=== PATIENT | male | born 1950 | race Caucasian/White ===

== ENCOUNTER → 2016-12-07 | Outpatient (REF) | payer MEDICARE ==
[~2016-12-07] MED LIST: /PANT40TA PO; /WARF4TA PO; ALEV220T26 PO; ASPI325T PO; CO Q60CA PO; IBUP200T2 PO; KRIL1000 PO; MULTTAB4 PO; SAW500CA7 PO; TYLE325T5 PO; VITACAP8 PO; [UNRECOGNIZED DRUG - CODE] PO
[2016-12-07 12:11] LABS: ALBUMIN 3.7 GM/DL (3.2-5.2); ALBUMIN/GLOBULIN RATIO 1.28 (1.00-1.93); ALKALINE PHOSPHATASE 75 U/L (45-117); ALT/SGPT 24 U/L (12-78); ANION GAP 8 MEQ/L (8-16); AST/SGOT 18 U/L (15-37); BILIRUBIN,TOTAL 0.7 MG/DL (0.2-1.0); BLOOD UREA NITROGEN 16 MG/DL (7-18); CALCIUM LEVEL 8.5 MG/DL (8.8-10.2); CARBON DIOXIDE LEVEL 30 MEQ/L (21-32); CHLORIDE LEVEL 106 MEQ/L (98-107); CHOLESTEROL LEVEL 279 MG/DL (<200); CREATININE FOR GFR 1.11 MG/DL (0.70-1.30); GLOMERULAR FILTRATION RATE > 60.0 (>49); GLUCOSE, FASTING 96 MG/DL (80-110); POTASSIUM SERUM 4.2 MEQ/L (3.5-5.1); SODIUM LEVEL 144 MEQ/L (136-145); TOTAL PROTEIN 6.6 GM/DL (6.4-8.2); TRIGLYCERIDES LEVEL 227 MG/DL (<150)
== END ==
LOC: M SFHCCLAY 07:13
PROVIDERS: ATTEND Family Medicine
DX: E78.2 Mixed hyperlipidemia (principal); I10 Essential (primary) hypertension

== ENCOUNTER → 2016-12-29 | Outpatient (CLI) | payer MEDICARE ==
--- NOTE | 2016-12-29 13:16 | REP ---
LEFT LOWER EXTREMITY DOPPLER VENOUS ULTRASOUND WITH VENOUS REFLUX ULTRASOUND: 12/29/2016. Comparison: Bilateral lower extremity venous ultrasound 11/05/2012. Clinical history: Chronic venous hypertension, ulcer left lower extremity. Prior DVT in the distal femoral and popliteal vein on that left side, nonocclusive. Technique: Standard duplex techniques were utilized. Subsequently a venous reflux study performed the same extremity. LOWER EXTREMITY DOPPLER VENOUS ULTRASOUND: The deep venous system was studied using the standard techniques. There was nonocclusive DVT present in the distal SFV through the popliteal trifurcation. There was color flow seen throughout it. Some respiratory variation and augmented flow also demonstrated throughout the course of these vessels. The common femoral vein and proximal femoral vein in the thigh are without thrombus and are fully compressible with respiratory variation and augmented flow. Impression: 1. Nonocclusive DVT in the distal femoral vein and popliteal vein through to the popliteal trifurcation. Good flow with respiratory variation and augmented flow demonstrated. 2. Incidental note made of the duplication of the mid SFV as anatomic variation. Technologist notes indicate the patient is taking Xarelto at this time. LEFT LOWER EXTREMITY VENOUS REFLUX STUDY: CFV reflux yes. Anterior accessory GSV present, reflux no. GSV at femoral junction: Reflux no. GSV at saphenofemoral junction 3.5 mm AP. GSV at midthigh yes reflux. AP 6.1 mm. Reflux 9.5 seconds. GSV at knee yes reflux. AP 4.6 mm. Reflux 9.0 seconds. SFV proximal yes, reflux. SFV mid yes, reflux. SFV distal yes, reflux. Popliteal yes, reflux. Lesser saphenous vein yes, reflux when standing. AP dimension 3.5 mm reflux time 4.75 seconds. There were collaterals from the proximal thigh, midthigh, and distal thigh region of the GSV. At the knee there was a 3.6 mm collateral anterior accessory saphenous vein connects to the greater saphenous vein in the midthigh. There was reflux and residual thrombus in the distal SFV and popliteal vein. Signed by Enrique Clark MD 12/29/2016 08:11 P
== END ==
LOC: M RAD 08:51
PROVIDERS: ATTEND Surgery
DX: I87.312 Chronic venous hypertension (idiopathic) with ulcer of left lower extremity (principal)

== ENCOUNTER → 2017-04-10 | Outpatient (REF) | payer MEDICARE ==
[2017-04-10 13:03] LABS: ALBUMIN 3.7 GM/DL (3.2-5.2); ALBUMIN/GLOBULIN RATIO 1.28 (1.00-1.93); ALKALINE PHOSPHATASE 83 U/L (45-117); ALT/SGPT 28 U/L (12-78); ANION GAP 7 MEQ/L (8-16); AST/SGOT 24 U/L (15-37); BILIRUBIN,TOTAL 0.7 MG/DL (0.2-1.0); BLOOD UREA NITROGEN 24 MG/DL (7-18); CALCIUM LEVEL 8.7 MG/DL (8.8-10.2); CARBON DIOXIDE LEVEL 28 MEQ/L (21-32); CHLORIDE LEVEL 106 MEQ/L (98-107); CHOLESTEROL LEVEL 256 MG/DL (<200); CREATININE FOR GFR 1.07 MG/DL (0.70-1.30); GLOMERULAR FILTRATION RATE > 60.0 (>49); GLUCOSE, FASTING 86 MG/DL (80-110); POTASSIUM SERUM 4.5 MEQ/L (3.5-5.1); SODIUM LEVEL 141 MEQ/L (136-145); TOTAL PROTEIN 6.6 GM/DL (6.4-8.2); TRIGLYCERIDES LEVEL 192 MG/DL (<150)
== END ==
LOC: M SFHCCLAY 07:48
PROVIDERS: ATTEND Family Medicine
DX: E78.2 Mixed hyperlipidemia (principal); Z12.5 Encounter for screening for malignant neoplasm of prostate; I10 Essential (primary) hypertension
CPT/HCPCS: 80053; 80061; 84443; G0103

== ENCOUNTER → 2017-10-17 | Outpatient (REF) | payer MEDICARE ==
[2017-10-17 12:11] LABS: ALBUMIN/GLOBULIN RATIO 1.29 (1.00-1.93); ALKALINE PHOSPHATASE 77 U/L (45-117); ALT/SGPT 24 U/L (12-78); ANION GAP 6 MEQ/L (8-16); AST/SGOT 19 U/L (7-37); BILIRUBIN,TOTAL 0.6 MG/DL (0.2-1.0); BLOOD UREA NITROGEN 25 MG/DL (7-18); CALCIUM LEVEL 8.9 MG/DL (8.8-10.2); CARBON DIOXIDE LEVEL 29 MEQ/L (21-32); CHLORIDE LEVEL 105 MEQ/L (98-107); CHOLESTEROL LEVEL 302 MG/DL (<200); CHOLESTEROL RISK RATIO 7.743 (<5); CREATININE FOR GFR 1.26 MG/DL (0.70-1.30); GLOMERULAR FILTRATION RATE > 60.0 (>49); GLUCOSE, FASTING 92 MG/DL (80-110); HDL CHOLESTEROL 39 MG/DL (>40); LDL CHOLESTEROL 217.2 MG/DL (<100); NON-HDL-C 263 MG/DL; POTASSIUM SERUM 4.3 MEQ/L (3.5-5.1); SODIUM LEVEL 140 MEQ/L (136-145); TOTAL PROTEIN 7.1 GM/DL (6.4-8.2); TRIGLYCERIDES LEVEL 229 MG/DL (<150)
== END ==
LOC: M SFHCCLAY 07:27
DX: E78.2 Mixed hyperlipidemia (principal); I10 Essential (primary) hypertension
CPT/HCPCS: 84443

== ENCOUNTER → 2018-06-19 | Outpatient (CLI) | payer MEDICARE | LOC: M CLY 07:48 | DX: M25.561 Pain in right knee (principal); Z53.8 Procedure and treatment not carried out for other reasons ==

== ENCOUNTER → 2018-06-19 | Outpatient (CLI) | payer MEDICARE | LOC: M CLY 08:14 | DX: M17.11 Unilateral primary osteoarthritis, right knee (principal); M25.761 Osteophyte, right knee; M25.561 Pain in right knee | CPT/HCPCS: 73564; G0463 ==

== ENCOUNTER → 2018-11-04 | Outpatient (REF) | payer MEDICARE ==
[2018-11-04 12:19] LABS: ALBUMIN 3.6 GM/DL (3.2-5.2); ALT/SGPT 24 U/L (12-78); BILIRUBIN,TOTAL 0.6 MG/DL (0.2-1.0); BLOOD UREA NITROGEN 22 MG/DL (7-18); CALCIUM LEVEL 8.8 MG/DL (8.8-10.2); CARBON DIOXIDE LEVEL 27 MEQ/L (21-32); CHLORIDE LEVEL 105 MEQ/L (98-107); CHOLESTEROL LEVEL 266 MG/DL (<200); CHOLESTEROL RISK RATIO 7.823 (<5); CREATININE FOR GFR 1.11 MG/DL (0.70-1.30); GLOMERULAR FILTRATION RATE > 60.0 (>49); GLUCOSE, FASTING 94 MG/DL (70-100); HDL CHOLESTEROL 34 MG/DL (>40); LDL CHOLESTEROL 165 MG/DL (<100); NON-HDL-C 232 MG/DL; POTASSIUM SERUM 4.5 MEQ/L (3.5-5.1); SODIUM LEVEL 140 MEQ/L (136-145); TOTAL PROTEIN 6.5 GM/DL (6.4-8.2); TRIGLYCERIDES LEVEL 334 MG/DL (<150)
== END ==
LOC: M SFHCCLAY 07:08
PROVIDERS: ATTEND Family Medicine
DX: Z00.01 Encounter for general adult medical examination with abnormal findings (principal)
CPT/HCPCS: 80053; 80061; G0103

== ENCOUNTER → 2019-07-25 | Outpatient (REF) | payer MEDICARE ==
[~2019-07-25] MED LIST changes: -/PANT40TA PO; -/WARF4TA PO; +COUM1TAB14 PO; +PROT1TAB2 PO
[2019-07-25 12:25] LABS: HEMATOCRIT 48.1 % (42.0-52.0); HEMOGLOBIN 15.5 g/dl (13.5-17.5); MEAN CORPUSCULAR HEMOGLOBIN 28.5 pg (27.0-33.0); MEAN CORPUSCULAR HGB CONC 32.2 g/dl (32.0-36.5); MEAN CORPUSCULAR VOLUME 88.6 fl (80.0-96.0); PLATELET COUNT, AUTOMATED 207 10^3/uL (150-450); RED BLOOD COUNT 5.43 10^6/uL (4.30-6.10); WHITE BLOOD COUNT 5.6 10^3/uL (4.0-10.0)
[2019-07-25 12:37] LABS: ALBUMIN 3.7 GM/DL (3.2-5.2); ALT/SGPT 25 U/L (12-78); BILIRUBIN,DIRECT < 0.1 MG/DL (0.0-0.2); BILIRUBIN,TOTAL 0.6 MG/DL (0.2-1.0); CHOLESTEROL LEVEL 259 MG/DL (<200); CHOLESTEROL RISK RATIO 7.194 (<5); HDL CHOLESTEROL 36 MG/DL (>40); LDL CHOLESTEROL 180 MG/DL (<100); NON-HDL-C 223 MG/DL; TOTAL PROTEIN 6.6 GM/DL (6.4-8.2); TRIGLYCERIDES LEVEL 213 MG/DL (<150)
== END ==
LOC: M LABDRAWC 11:16
PROVIDERS: ATTEND Physician Assistant
DX: E78.2 Mixed hyperlipidemia (principal); I48.3 Typical atrial flutter

== ENCOUNTER 2019-11-06 08:14 | Inpatient (IN) | payer MEDICARE ==
[~2019-11-06] VITALS: Ht 182.9 cm; Wt 108.9 kg
[2019-11-06 09:08] LABS: HEMATOCRIT 32.8 % (42.0-52.0); HEMOGLOBIN 10.2 g/dl (13.5-17.5); MEAN CORPUSCULAR HEMOGLOBIN 28.7 pg (27.0-33.0); MEAN CORPUSCULAR HGB CONC 31.1 g/dl (32.0-36.5); MEAN CORPUSCULAR VOLUME 92.1 fl (80.0-96.0); PLATELET COUNT, AUTOMATED 382 10^3/uL (150-450); RED BLOOD COUNT 3.56 10^6/uL (4.30-6.10); WHITE BLOOD COUNT 14.3 10^3/uL (4.0-10.0)
--- NOTE | 2019-11-06 09:13 | REP ---
Portable chest, 08:57 a.m., single AP view with the patient sitting: Comparison is 11/05/2012. There are sternotomy wires as an interval change. There is a left atrial appendage O occlusion device as an interval change. The left hemidiaphragm is obscured, suggestive of a left lower lobe infiltrate/pleural effusion. The remainder of the left lung is clear. Right lung is clear. Cardiac size is enlarged. Impression: Probable left lower lobe infiltrate/effusion. Cardiomegaly. Interval placement of sternotomy wires and left atrial appendage occlusion device. Electronically Signed by Ilya Pelayo MD 11/06/2019 09:05 A
[2019-11-06 09:25] LABS: INR 1.51; PROTHROMBIN TIME 17.9 SECONDS (11.8-14.0)
[2019-11-06] MEDS ORDERED: LOPR1TAB6 PO (09:28)
[2019-11-06] MEDS ORDERED: FERR325T16 PO (09:28)
[2019-11-06] MEDS ORDERED: OCEA0.654 NARES (09:28)
[2019-11-06] MEDS ORDERED: ATOR80TA59 PO (09:28)
[2019-11-06] MEDS ORDERED: DOCU100C16 PO (09:28)
[2019-11-06] MEDS ORDERED: DAILTAB51 PO (09:28)
[2019-11-06] MEDS ORDERED: FURO40TA2 PO (09:28)
[2019-11-06] MEDS ORDERED: POTA1TAB14 PO (09:28)
[2019-11-06] MEDS ORDERED: HYDR-3713 PO (09:28)
[2019-11-06] MEDS ORDERED: VITA500C24 PO (09:28)
[2019-11-06] MEDS ORDERED: AMIO200T40 PO (09:28)
[2019-11-06] MEDS ORDERED: WARF-58 PO (09:28)
[2019-11-06] MEDS ORDERED: FOLI1TAB11 PO (09:28)
[2019-11-06] MEDS ORDERED: ASPI81CH33 PO (09:28)
[2019-11-06 09:35] LABS: ATYPICAL LYMPH 3 % (0-5); BASOPHILS 1 % (0-1); EOSINOPHILS 3 % (0-3); LYMPHOCYTES 11 % (16-44); METAMYELOCYTES 3 % (0-0); MONOCYTES 4 % (0-5); MYELOCYTES 2 % (0-0); NEUTROPHILS 70 % (28-66)
[2019-11-06 09:36] LABS: ANISOCYTOSIS 2+; POIKILOCYTOSIS 1+; POLYCHROMASIA 1+
[2019-11-06 09:40] LABS: PLATELET ESTIMATE NORMAL (NORMAL)
[2019-11-06 09:44] LABS: ALBUMIN 2.7 GM/DL (3.2-5.2); ALT/SGPT 54 U/L (12-78); BILIRUBIN,DIRECT 0.2 MG/DL (0.0-0.2); BILIRUBIN,TOTAL 0.6 MG/DL (0.2-1.0); BLOOD UREA NITROGEN 24 MG/DL (7-18); CALCIUM LEVEL 8.5 MG/DL (8.8-10.2); CARBON DIOXIDE LEVEL 28 MEQ/L (21-32); CHLORIDE LEVEL 102 MEQ/L (98-107); CK-MB VALUE MASS 1.2 NG/ML (<3.6); CPK CREATINE PHOSPHOKINASE 85 U/L (39-308); CREATININE FOR GFR 0.92 MG/DL (0.70-1.30); GLOMERULAR FILTRATION RATE > 60.0 (>49); GLUCOSE, FASTING 102 MG/DL (70-100); MB/CK RELATIVE INDEX 1.41 (< OR =4); NT-PRO BNP 1105 PG/ML (<125); SODIUM LEVEL 136 MEQ/L (136-145); TOTAL PROTEIN 6.8 GM/DL (6.4-8.2); TROPONIN I 0.33 NG/ML (< 0.10)
--- NOTE | 2019-11-06 10:23 | REP ---
CT of the chest without IV contrast: Comparison is the portable plain film study performed earlier today and a prior chest CT of 11/05/2012. There is a moderate left pleural effusion with compression atelectasis of the adjacent lung, similar to the findings on the comparison study earlier today. Additionally, there is a left lower lobe infiltrate, not definitely visualized on the portable plain film study earlier today. On the comparison CT there are small lung nodules. Many of these nodules are visible today and are unchanged. Others of these nodules are obscured by the infiltrates and pleural effusions per Cardiac size is enlarged as previously. There is a small pericardial effusion versus pericardial thickening as an interval change. There has been interval placement of aortic valve and the left atrial appendage occlusion device. The visualized unenhanced upper abdominal structures are unremarkable. Impression: There is a left lower lobe pleural effusion with atelectasis in the adjacent lung. There is a right lower lobe infiltrate, not visible on the comparison plain film study earlier today. There is cardiomegaly, unchanged. However, there is now a small pericardial effusion as an interval change. There has been interval placement of an aortic valve and left atrial appendage occlusion device. There are multiple small lung nodules on the prior study. Some of these nodules are visible today and are unchanged. The other nodules are obscured by the infiltrates and effusions. Electronically Signed by Ilya Pelayo MD 11/06/2019 10:14 A
[2019-11-06] MEDS ORDERED: cefTRIAXone SOD 2 GM in D5W MINI-BAG PLUS 50 ML IV ONE (10:45)
[2019-11-06] MEDS ORDERED: WARF4TAB51 PO (11:27)
[2019-11-06] MEDS ORDERED: ACET-907 PO (11:27)
[2019-11-06] MEDS ORDERED: ASPI81TA26 PO (11:27)
[2019-11-06] MEDS ORDERED: DOXYCYCLINE HYCLATE 100 MG in D5W MINI-BAG PLUS 100 ML IV SCH (12:00)
[2019-11-06] MEDS: LEVALBUTEROL 1.25 MG/0.5 ML CONCENTRATE NEB NEB SCH ×3 (12:00→20:05)
[2019-11-06 12:17] LABS: C REACTIVE PROTEIN QUANTITATIV 7.73 MG/DL (0.00-0.30)
[2019-11-06] MEDS ORDERED: FUROSEMIDE 100 MG/10 ML VIAL (J1940) IV ONE (12:30)
[2019-11-06 12:45] VITALS: BP 120/68
[2019-11-06] MEDS ORDERED: VANCOMYCIN HCL 1,000 MG, VIAL MATE ADAPTER 1 EACH in D5W 250 ML IV SCH (12:45)
[2019-11-06] MEDS ORDERED: ACETAMINOPHEN TAB 650MG DOSE (2X325MG) PO PRN (12:45)
[2019-11-06 13:12] VITALS: BP 120/68
[2019-11-06 13:17] LABS: ERYTHROCYTE SEDIMENTATION RATE 73 mm/hr (0-20)
[2019-11-06] MEDS: LACTOBACILLUS ACIDOPHILUS CAP (BACID) PO SCH ×3 (13:38→21:29)
[2019-11-06] MEDS: FUROSEMIDE 40 MG/4 ML VIAL (J1940) IV SCH ×3 (13:38→21:30)
[2019-11-06] MEDS ORDERED: VANCOMYCIN HCL 1,000 MG, VIAL MATE ADAPTER 1 EACH in D5W 250 ML IV ONE ×2 (14:00→15:00)
[2019-11-06 14:31] VITALS: BP 128/90
--- NOTE | 2019-11-06 14:59 | HPE ---
DATE OF ADMISSION: 11/06/2019 CHIEF COMPLAINT: Shortness of breath. HISTORY OF PRESENT ILLNESS: This is a 68-year-old male with recent coronary artery bypass graft (CABG) times four vessels and aortic valve replacement discharged 11/05/2019 from [facility] where he presented on 10/26/2019 for chest pain and shortness of breath. The patient did not get surgery until 10/29/2019 and was subsequently managed medically postoperatively and discharged home. Yesterday, when he was seen by his home care nurse, patient was doing well but said that this morning at around 4:00 a.m., he did not look himself and was increasingly short of breath and having to sit up at home. The discharge weight was 258.4 kg. They have noticed worsening lower extremity edema, a cough that is slightly productive of white sputum without fever or chills. Patient denies any substernal chest pressure or tightness. Denies dizziness or lightheadedness. says that no medications were taken for the shortness of breath and he promptly came into the emergency room for further evaluation today. According to the , patient has not had any other sick contacts at home. He has been in the hospital from 10/26/2019 until 11/05/2019 at [facility]. He has not exhibited any fever or chills, dysuria, urgency or frequency, nausea, vomiting, abdominal pain, diarrhea or constipation. Denies any headaches, sore throat, ear discharge, nasal congestion. But has had a decrease in appetite today and has really not been eating. In the emergency room, he was noted to have BNP of 1105, white count was elevated at 14. He was afebrile with temperature of 98.3, he was saturating 94% on room air, was not tachypneic. CT chest shows moderate left-sided effusion with bibasilar infiltrates. Hospitalist was called to admit for hospital acquired pneumonia since patient was discharged on 11/05/2019 from [facility] and subsequently presented to the emergency room today for shortness of breath. His EKG showed first degree AV block, sinus rhythm, ventricular rate of 76 with inferior myocardial infarction (DE) age indeterminate but no acute ST/T wave changes. Troponin was 0.33, total CK of 85, MB fraction of 1.2, and BNP of 1105. Per Dr. Bustamante, executive director sheltered workshop economic analyst by telephone consult, it is likely that most patient's who have recently have a CABG may be slightly fluid overloaded. It is reasonable to diuresis. At this time, he was on his home dose of 40 mg of Lasix but we have given 60 mg in the emergency room due to discomfort. Patient was subsequently admitted to progressive care unit (PCU) telemetry for hospital acquired pneumonia, as well as possible new onset congestive heart failure. A stat two-dimension echo has been ordered as well as cycling of cardiac markers. It has been discussed with the family, that should he decompensate overnight or have worsening cardiac markers, then he would need to be transferred to [facility] and they were agreeable with this overall plan. PAST MEDICAL HISTORY: Coronary artery disease (CAD) and CABG times four vessels. Aortic valve replacement. This was done 10/29/2019, recently discharged from [facility] 11/05/2019. Obstructive sleep apnea. Peripheral arterial disease. Hyperlipidemia. History of pulmonary embolism. Cardiac arrhythmias. Cold sores. ALLERGIES: AMOXICILLIN causing rash. PENICILLIN causing rash. PAST SURGICAL HISTORY: Mitral valve repair 2005. Aortic valve replacement. Ablation for atrial fibrillation July 2014. Knee surgery October 2012. Pulmonary embolism 2012. CABG times four vessels, aortic valve replacement 10/29/2019. HOME MEDICATIONS: - Lasix 40 mg daily - daily nasal spray, two sprays nares four times a day as needed. - multivitamin one tablet daily - Tylenol 650 by mouth four times a day as needed - amiodarone 400 mg twice a day - ascorbic acid 500 mg daily - aspirin 81 mg daily - atorvastatin 80 mg nightly - Colace 100 mg twice a day - ferrous gluconate 324 twice a day - folic acid 1 mg daily - hydrocodone/acetaminophen 5/325 one to two tablets every 6 hours as needed for pain. - Lopressor 50 mg twice a day - potassium 20 mEq daily - warfarin 2 mg tablets 3 mg nightly SOCIAL HISTORY: The patient never smoked. Lives at home with his , self-employed. No recreational use. FAMILY HISTORY: Mother with breast cancer. Father with leukemia. REVIEW OF SYSTEMS: Per history of present illness (HPI), 12-point system otherwise negative. PHYSICAL EXAMINATION: Temperature 98, pulse 77, respiratory rate 24, blood pressure 105/69, 96% in room air. Generally, patient is awake, alert, oriented times three. He has no conversational dyspnea. No use of respiratory accessory muscles. Able to speak in full sentences. Neck is thick. Mild jugular venous distention. No cervical lymphadenopathy or thyromegaly. Postoperative changes on the anterior chest with a drain attached. He has diminished breath sounds with rales at the bilateral bases. Faint expiratory wheezing and coarse rhonchi. Heart: S1, S2. Irregularly irregular. Systolic ejection murmur 2/6. Multiple scarring on the bilateral lower abdominal abdomen, which are well-healed. No erythema or tenderness. Positive bowel sounds. No abdominal bruit. The abdomen is soft, nontender. Extremities: 2+ pitting edema. EKG: Sinus rhythm. Ventricular rate of 76. First degree AV block, inferior DE, age indeterminate. LABORATORY DATA: White count 14.3, hemoglobin 10, hematocrit 32, platelet count of 382, 3 bands, 70% neutrophils, sed rate of 73. Sodium 136, potassium 4, chloride 102, bicarbonate 28, BUN 24, creatinine 0.92, glucose 102, lactic acid 1.6, calcium 8.5. T, bilirubin 0.6, direct bilirubin 0.2, AST 34, ALT 54, alkaline phosphatase 150. Total CK 85, MB fraction 1.2, relative index 1.4, troponin 0.33, C-reactive protein 7.73, BNP 1105. Total protein 6.9 and albumin 2.7. TSH 2.51. INR 1.5, PT 17.9. IMAGING STUDIES: 11/06/2019 chest x-ray: Interval placement of sternotomy wires. Some left atrial appendage occlusion device. There is left hemidiaphragm obscured suggestive of left lower lobe effusion or infiltrate. Remainder of left lung is clear. Right lung is clear. Cardiac size is enlarged. CT chest 11/06/2019 without contrast: Moderate left pleural effusion with compression atelectasis of the adjacent lung similar to findings on the comparison study earlier today. Additionally, there is a left lower lobe infiltrate not definitely visualized on the portable plain film study earlier today. On comparison CT, there are small lung nodules, many of these nodules are visible today and are unchanged. Others of these nodules are obscured by infiltrates and pleural effusions. Cardiac size is enlarged as previously. There is a small pericardial effusion versus pericardial thickening as an interval change. There has been an interval placement of aortic valve and left atrial appendage occlusion device. The visualized unenhanced upper abdominal structures are unremarkable. ASSESSMENT/PLAN: This is a 68-year-old FULL CODE with history of CAD, CABG times four vessels, aortic valve replacement, sleep apnea, peripheral arterial disease, hyperlipidemia, essential hypertension, atrial fibrillation status post ablation, pulmonary embolism. Presents to the emergency room after being home for 1 day from [facility] where he was admitted 10/26/2019 to 11/05/2019 after he presented with shortness of breath and chest pain and underwent a CABG on 10/29/2019. Patient was found to have infiltrate on CT chest of the left lung as well a moderate pleurale effusion, 3+ edema, some weight gain, cough and paroxysmal nocturnal dyspnea with three-pillow orthopnea at home. Patient is admitted as an inpatient for the following acute issues. 1. Hospital acquired pneumonia with no infiltrate found on CT chest on the left side. Since the patient was recently discharged from [facility] on 11/05/2019, broader coverage was required including vancomycin to cover Staphylococcus aureus (MRSA) as well a meropenem due to allergy to penicillin. Patient has been asked to give a sputum sample. He will be swabbed for MRSA, PCR screen as well as respiratory panel. Sputum and blood cultures have been obtained. Check procalcitonin, sed rate and CRP and tract patient's CBC with differential. He does have bandemia of 3 on the CBC today despite not having a fever. He did have a slight white count of 14,000. In order to decrease the risk of C difficile, patient will be given Bacid one capsule every morning and nightly. 2. Recent CABG with [place] valve coronary artery disease: Patient's troponin is most likely related to recent CABG. He does not have any acute chest pains at the moment aside from the pain from the incision site as he does not have any acute ischemic changes on his EKG. Cardiac markers will continued to be cycled along with EKG. A stat 2D echo has been obtained to check his systolic function and he will be monitored in telemetry and resumed on all of his home medications including aspirin 81 mg daily, Lipitor 80 mg every night, Lopressor 50 mg twice a day, as well as his warfarin which is used for atrial fibrillation and recent valve replacement. We will obtain records from [facility]. The patient is to given consent for continuity of care. 3. Hypertension: Current well controlled on metoprolol along with Lasix. 4. Fluid overload with recent history of CABG: Per Dr. Bustamante, executive director sheltered workshop economic analyst covering to Dr. Anguiano who is the patient's executive director sheltered workshop, it is common for patients who have undergone CABG to have some fluid overload and reasonable to diurese slightly until euvolemic. In light of patient's significant discomfort and moderate effusion on the left lung found on CT chest along with weight gain and lower extremity worsening edema, patient will be placed on a strict fluid restriction of 2 liters daily along with strict Input and output, daily weights and Lasix 40 IV every 4 hours to be held if patient is diuresed 2 liters negative. It will also be held for systolic pressure less than 110 as well as for creatinine greater than 1.5. Repeat metabolic panel and magnesium will be obtained and will be repleted of the potassium and magnesium are below 3.5 and below 2 respectively. 5. Dyslipidemia: He is continued on his home dose of Lipitor. We will recheck a lipid panel in the morning. 6. Anemia of chronic disease: Resume on home dose of Fergon and bowel regimen to prevent constipation. 7. History of sleep apnea: Continue on supplemental oxygen in the evening. Check a nocturnal oximetry and may resume CPAP if he uses it at home. 8. History of atrial fibrillation on chronic warfarin, status post ablation in the past. 9. Deep venous thrombosis (DVT) prophylaxis on chronic warfarin. 10. Acute rehabilitation unit (ARU) screen and physical therapy (PT). Activity as tolerated. 11. Family has bee informed that should the patient decompensate, we will attempt to transfer him to [facility] for further evaluation of his recent CABG.
--- NOTE | 2019-11-06 15:22 | ECGEPIP ---
[facility] - ED Test Date: 2019-11-06 Pat Name: MONIKA CHAVEZ Department: Room: - Gender: Male [employer]: delio : 1950 Requested By: Carmen Montoya Order Number: [id number] Reading MD: Thong Mcclendon Measurements Intervals [place] Rate: 76 P: 69 FL: 254 QRS: 50 QRSD: 102 T: -14 QT: 403 QTc: 455 Interpretive Statements SINUS RHYTHM WITH FIRST DEGREE AV BLOCK Inferior Q waves of uncertain significance Comparison tracing not on file Electronically Signed on 11-06-2019 15:21:48 EST by Thong Mcclendon
--- NOTE | 2019-11-06 15:35 | PHACANCOPD ---
PHARMACY VANCOMYCIN DOSING Pt Demographics Demographics Patient Age:68 , Weight:113.640 , Gender: male Adjusted Body Weight Date: 11/06/19, Adjusted Body Weight: Kg Events Past 24 Hours Events Past 24 Hours: NO: Dialysis, Diuretic Therapy, Change in CrCl, Fever, Elevation in WBC, Pending Diagnostics, Pending Procedures, Other Vancomycin Vancomycin indication: Pneumonia Vancomycin Target Ranges: 15-20 mcg/ml Vancomycin Load Y/N: Yes Load Dose Date Time Vancomycin Load Dose: 2000mg Date: 11/06 Time: 1400 Vancomycin Dose Date: 11/06/19. Current Vancomycin Dose: [1250mg IV q12h@05] Intermittent Dosing?: No Labs Labs Item Value Date Time White Blood Count 14.3 10^3/uL H 11/06/19 0853 Erythrocyte Sedimentation Rate 73 mm/hr H 11/06/19 0853 Lactic Acid Level 1.6 MMOL/L 11/06/19 0853 C-Reactive Protein, Quantitative 7.73 MG/DL H 11/06/19 0853 Oxygen Delivery Method Room Air 11/06/19 1431 Vital Signs Label Value Date Time Patient Temperature 98.3 degrees F 11/06/19 1431 Temperature Source Temporal 11/06/19 1431 Bedside Pulse Oximetry 94 % 11/06/19 1431 Micro Microbiology 11/06/19 Blood Culture, Received Pending 11/06/19 Respiratory Virus Panel (PCR) (CHERELLE) - Final, Complete 11/06/19 Blood Culture, Received Pending Creatinine Clearance Date:11/06/19. Creatinine Clearance: . Assessment and Plan Maintaining Current Dose?: Yes Reason for dose change: No Dose Change Pharmacist Note Pharmacist Note Date: 11/06/19. Pharmacist note: Patient was recently discharged from another hospital and admitted today for hospital acquired pneumonia. He has an elevated WBC, ESR and CRP, but he is on room air, afebrile, and his lactic acid is normal. Patient was empirically started on Meropenem and Vancomycin. His respiratory panel was negative, and he has blood and MRSA nasal PCR pending. Patient was loaded with Vancomycin 2000mg then continued on 1250mg IV q12h. He has not been on vancomycin at [facility] before. WE will continue to monitor and make adjustments as necessary. HANNY CORTEZ PHARMACY Nov 06, 2019 15:35
[2019-11-06 16:00] VITALS: BP 115/71
[2019-11-06] MEDS ORDERED: SLF 3 ML SYR IV PRN (16:30)
[2019-11-06] MEDS: MEROPENEM INJ 1 GM in IV 1 EA IV SCH (17:29)
[2019-11-06 18:26] LABS: BLOOD UREA NITROGEN 23 MG/DL (7-18); CALCIUM LEVEL 8.4 MG/DL (8.8-10.2); CARBON DIOXIDE LEVEL 29 MEQ/L (21-32); CHLORIDE LEVEL 102 MEQ/L (98-107); CK-MB VALUE MASS < 1.0 NG/ML (<3.6); CPK CREATINE PHOSPHOKINASE 74 U/L (39-308); CREATININE FOR GFR 1.01 MG/DL (0.70-1.30); GLOMERULAR FILTRATION RATE > 60.0 (>49); GLUCOSE, FASTING 149 MG/DL (70-100); MAGNESIUM LEVEL 2.1 MG/DL (1.8-2.4); MB/CK RELATIVE INDEX 1.35 (< OR =4); POTASSIUM SERUM 3.5 MEQ/L (3.5-5.1); SODIUM LEVEL 137 MEQ/L (136-145); TROPONIN I 0.32 NG/ML (< 0.10)
[2019-11-06 20:00] VITALS: BP 119/63
[2019-11-06] MEDS: ATORVASTATIN 20 MG TAB PO SCH (21:29)
[2019-11-06] MEDS: FERROUS GLUCONATE 324 MG TAB PO SCH (21:29)
[2019-11-06] MEDS: AMIODARONE 200 MG TAB (PACERONE) PO SCH (21:29)
[2019-11-06] MEDS: DOCUSATE SODIUM 100 MG CAP PO SCH (21:29)
[2019-11-06] MEDS: METOPROLOL TART 50 MG TAB PO SCH (21:30)
[2019-11-06] MEDS: WARFARIN SOD 2 MG TAB PO SCH (21:31)
[2019-11-06] MEDS: SLF 3 ML SYR IV SCH (21:32)
--- NOTE | 2019-11-06 23:23 | ECHO ---
DATE OF PROCEDURE: 11/06/2019 REFERRING PHYSICIAN: Rosmery Stark MD INDICATION: Shortness of breath, status post CABG. HEIGHT: 183 cm WEIGHT: 114 kg 2D MEASUREMENTS: Left atrium: 4.1 cm Ventricular septum: 1.33 cm Posterior wall: 1.24 cm Left ventricle diastole: 4.4 cm Aortic annulus: 2.3 cm DOPPLER MEASUREMENTS: No aortic regurgitation. No aortic stenosis. Aortic valve velocity: 235 ms Aortic valve VTI: 41.5 cm Peak aortic valve gradient: 22 mmHg Mean aortic valve gradient: 15 mmHg LVOT velocity: 91.7 cm/s LVOT VTI: 16.9 cm No mitral regurgitation. No mitral stenosis. Trace tricuspid regurgitation. Pulmonary acceleration time: 70 ms No pulmonic regurgitation. MITRAL ANNULAR TISSUE DOPPLER: E prime septal: 5.0 cm/s E prime lateral: 7.0 cm/s DESCRIPTION: Rhythm suspected to be atrial fibrillation. However, the EFEG recording was of fairly poor quality. This was a moderately technically difficult echocardiogram. This was a 2D, M-mode, color flow Doppler and pulse wave Doppler examination that included mitral annular tissue Doppler. CONCLUSIONS: 1. Mild concentric left ventricle hypertrophy. Normal regional left ventricle (LV) wall motion and wall thickening. Normal LV systolic function. Left ventricular ejection fraction (LVEF) 60% by visual estimate. Reduced mitral annular tissue Doppler velocity suggestive of some degree of LV diastolic dysfunction. 2. Left pleural effusion. 3. Status post aortic valve replacement (bioprosthesis), which was structurally and functionally normal. 4. Appearance of moderate mitral annular calcification. No mitral regurgitation or stenosis. 5. Small pericardial effusion. No diastolic chamber collapse. 6. Abbreviated pulmonary acceleration time suggestive of probably moderate degree of pulmonary hypertension. 7. Moderately technically difficult echocardiogram. Recommend effective endocarditis prophylaxis prior to dental procedures likely to produce transient bacteremia.
[2019-11-06 23:59] VITALS: BP 119/63
[2019-11-07] VITALS (14 sets, daily range): BP systolic 108–131; BP diastolic 66–79; O2SAT 90–97
[2019-11-07 00:10] LABS: BLOOD UREA NITROGEN 23 MG/DL (7-18); CALCIUM LEVEL 8.2 MG/DL (8.8-10.2); CARBON DIOXIDE LEVEL 28 MEQ/L (21-32); CHLORIDE LEVEL 102 MEQ/L (98-107); CK-MB VALUE MASS < 1.0 NG/ML (<3.6); CPK CREATINE PHOSPHOKINASE 74 U/L (39-308); CREATININE FOR GFR 1.08 MG/DL (0.70-1.30); GLOMERULAR FILTRATION RATE > 60.0 (>49); GLUCOSE, FASTING 118 MG/DL (70-100); MB/CK RELATIVE INDEX 1.35 (< OR =4); POTASSIUM SERUM 3.6 MEQ/L (3.5-5.1); SODIUM LEVEL 138 MEQ/L (136-145)
[2019-11-07] MEDS: MEROPENEM INJ 1 GM in IV 1 EA IV SCH ×3 (00:27→15:23)
[2019-11-07] MEDS: FUROSEMIDE 40 MG/4 ML VIAL (J1940) IV SCH ×6 (00:28→18:28)
[2019-11-07] MEDS: LEVALBUTEROL 1.25 MG/0.5 ML CONCENTRATE NEB NEB SCH ×6 (00:37→20:00)
[2019-11-07] MEDS: VANCOMYCIN HCL 750 MG, VIAL MATE ADAPTER 1 EACH in D5W 250 ML IV SCH ×2 (04:48→17:07)
[2019-11-07] MEDS: SLF 3 ML SYR IV SCH ×3 (06:18→21:40)
[2019-11-07] MEDS: VANCOMYCIN HCL 500 MG in D5W MINI-BAG PLUS 100 ML IV SCH ×2 (06:18→18:29)
[2019-11-07 06:51] LABS: HEMATOCRIT 33.6 % (42.0-52.0); HEMOGLOBIN 10.4 g/dl (13.5-17.5); MEAN CORPUSCULAR VOLUME 90.6 fl (80.0-96.0); PLATELET COUNT, AUTOMATED 418 10^3/uL (150-450); RED BLOOD COUNT 3.71 10^6/uL (4.30-6.10); WHITE BLOOD COUNT 14.9 10^3/uL (4.0-10.0)
[2019-11-07 07:07] LABS: INR 1.44; PROTHROMBIN TIME 17.3 SECONDS (11.8-14.0)
[2019-11-07 07:13] LABS: BASOPHILS 1 % (0-1); EOSINOPHILS 3 % (0-3); LYMPHOCYTES 10 % (16-44); METAMYELOCYTES 3 % (0-0); MONOCYTES 3 % (0-5); MYELOCYTES 1 % (0-0); NEUTROPHILS 79 % (28-66); PLATELET ESTIMATE INCREASED (NORMAL)
[2019-11-07 07:14] LABS: HYPOCHROMASIA 1+; POLYCHROMASIA 2+
[2019-11-07 07:17] LABS: ANISOCYTOSIS 1+
[2019-11-07 07:25] LABS: BLOOD UREA NITROGEN 20 MG/DL (7-18); CALCIUM LEVEL 8.9 MG/DL (8.8-10.2); CARBON DIOXIDE LEVEL 29 MEQ/L (21-32); CHLORIDE LEVEL 100 MEQ/L (98-107); GLOMERULAR FILTRATION RATE > 60.0 (>49); GLUCOSE, FASTING 131 MG/DL (70-100); MAGNESIUM LEVEL 2.1 MG/DL (1.8-2.4); NT-PRO BNP 1186 PG/ML (<125); POTASSIUM SERUM 3.4 MEQ/L (3.5-5.1); SODIUM LEVEL 135 MEQ/L (136-145)
--- NOTE | 2019-11-07 08:14 | REP ---
Chest x-ray: Two views. History: Shortness of breath. Status post CABG. Rule out CHF. Comparison chest x-ray November 06, 2019. Findings: Moderate cardiac enlargement is again observed. The patient is status post median sternotomy, mitral and aortic valve replacement, and left atrial appendage clip being. There is blunting of the pleural angles bilaterally consistent with small bilateral effusions. Pulmonary vasculature is not cephalized or congestive. No pulmonary edema is seen. There is an old healed rib fracture on the right. Impression: Cardiomegaly with small bilateral effusions consistent with some degree of CHF. Postoperative changes. Electronically Signed by Issa Stearns MD 11/07/2019 08:06 A
[2019-11-07] MEDS: LACTOBACILLUS ACIDOPHILUS CAP (BACID) PO SCH ×4 (08:28→21:37)
[2019-11-07] MEDS: ASPIRIN 81 MG ENTERIC TAB PO SCH (08:30)
[2019-11-07] MEDS: DOCUSATE SODIUM 100 MG CAP PO SCH (08:30)
[2019-11-07] MEDS: METOPROLOL TART 50 MG TAB PO SCH ×2 (08:31→21:37)
[2019-11-07] MEDS: AMIODARONE 200 MG TAB (PACERONE) PO SCH ×2 (08:31→21:37)
[2019-11-07] MEDS: ASCORBIC ACID 500 MG TAB PO SCH (08:31)
[2019-11-07] MEDS: FOLIC ACID 1 MG TAB PO SCH (08:32)
[2019-11-07] MEDS: FERROUS GLUCONATE 324 MG TAB PO SCH ×2 (08:32→21:37)
[2019-11-07] MEDS ORDERED: POTASSIUM CHLORIDE 10 MEQ SR TABLET PO SCH (09:00)
[2019-11-07] MEDS ORDERED: POTASSIUM CHLORIDE 10 MEQ SR TABLET PO ONE (10:00)
--- NOTE | 2019-11-07 10:42 | IPN ---
DATE: 11/07/2019 Patient complains of urinary retention, having difficulty starting and maintaining a urine. Shortness of breath is the same. Patient still has a cough that is dry. No fever or chills overnight. On the Lasix, patient diuresed 1.9 liters last night, 1.3 liters this morning. Patient says that his drain was not working well yesterday and he needed to have that corrected. Patient had a bowel movement, soft and liquidy overnight. He is open to having a Mata catheter placed due to significant difficulty urinating and urine retention. Vitals: Temperature 97.6, pulse 90, respiratory rate 20, blood pressure 130/79, 94% on room air. Generally awake, alert, oriented times three answering questions appropriately. Patient had no conversational dyspnea. No use of respiratory accessory muscles. Mild jugular venous distention (JVD). Lungs: Diminished breath sounds with crackles at the bases. Patient has a tube status post aortic valve replacement bioprosthesis and coronary artery bypass graft (CABG) awaiting records from [facility]. Heart S1, S2, sinus rhythm. Abdomen is soft, nontender, nondistended. Positive bowel sounds. Patient has well-healed scars, nontender, non erythematous. No drainage. Extremities: 1+ pitting edema. LABORATORY DATA: White count 14.9, hemoglobin 10, hematocrit 33, platelet count 418. Sodium 135, potassium 3.4, chloride 100, bicarbonate 29, BUN 20, creatinine 1.1, glucose 131, BNP 1186. Respiratory panel negative. Staphylococcus aureus (MRSA) screen negative. Sputum culture pending. Blood culture: No growth over 24 hours and pending. Repeat chest x-ray 11/07/2019: Congestive heart failure, small bilateral effusions consistent with CHF. ASSESSMENT/PLAN: This is a 68-year-old male with recent CABG times four vessels, aortic valve replacement bioprosthesis, sleep apnea, peripheral arterial disease, atrial fibrillation status post ablation, history of pulmonary embolus (PE) on chronic warfarin presented to the emergency room after being 1 day from [facility] where he was admitted from 10/26/2019 to 11/05/2019 after he presented with shortness of breath and chest pain and underwent CABG and aortic valve replacement. Found to have an infiltrate on CT chest and moderate pleural effusions, 3+ edema with cough, paroxysmal nocturnal dyspnea and three-pillow orthopnea. Patient is admitted for new onset of congestive heart failure as well as possible hospital-acquired pneumonia. IMPRESSION: 1. Congestive heart failure, acute diastolic dysfunction with preserved systolic ejection fraction. Patient is kept on strict input and output daily weights. He has been net negative balance. He is placed on fluid restriction. Patient says that he has not had any significant improvement yet. No acute coronary syndrome on cardiac markers or EKG. 2D echo shows no wall motion abnormality, ejection is well preserved with grade 1 diastolic dysfunction. 2. Pneumonia: Patient is currently on Zosyn. MRSA screen was negative and vancomycin has been discontinued. Patient has an allergy to penicillin and could not be given Zosyn (???)or ceftriaxone, awaiting procalcitonin, sed rate and CRP. Patient had bandemia of 3 and did have a slight white count of 14,000. Bacid to prevent C difficile. 3. Coronary artery disease (CAD) CABG: He is continued on recommended medications postoperatively. He is currently on amiodarone, aspirin, atorvastatin, metoprolol, warfarin. 4. Pain control with hydrocodone. 5. Urine retention most likely secondary to pain medications. Patient is having decent bowel movements. He has been given a Mata catheter for comfort due to postvoid residual. 6. Chronic anemia: Continue on Fergon. DISPOSITION: Patient will need to continue diuresis over the next 3 or 4 days, Acute rehabilitation unit (ARU) consulted. GLADYS
[2019-11-07] MEDS ORDERED: cefTRIAXone SOD 2 GM in D5W MINI-BAG PLUS 50 ML IV SCH (11:00)
[2019-11-07] MEDS: NORCO, ANEXSIA 5/325MG TABLET (HYDROcodone/ACETAMINOPHEN) PO PRN (14:00)
[2019-11-07] MEDS: PHENAZOPYRIDINE 100 MG TAB PO SCH ×2 (15:21→21:35)
[2019-11-07] MEDS: HYDROMORPHONE HCL 0.5 MG/ 0.5 ML SYRINGE (J1170 PER 1) IV PRN ×2 (15:22→19:27)
--- NOTE | 2019-11-07 20:11 | ECGEPIP ---
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
[2019-11-07 20:13] LABS: BLOOD UREA NITROGEN 22 MG/DL (7-18); CALCIUM LEVEL 8.3 MG/DL (8.8-10.2); CARBON DIOXIDE LEVEL 28 MEQ/L (21-32); CHLORIDE LEVEL 101 MEQ/L (98-107); CREATININE FOR GFR 1.11 MG/DL (0.70-1.30); GLOMERULAR FILTRATION RATE > 60.0 (>49); GLUCOSE, FASTING 162 MG/DL (70-100); MAGNESIUM LEVEL 2.1 MG/DL (1.8-2.4); POTASSIUM SERUM 3.7 MEQ/L (3.5-5.1); SODIUM LEVEL 137 MEQ/L (136-145)
--- NOTE | 2019-11-07 20:15 | ECGEPIP ---
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
[2019-11-07] MEDS: ATORVASTATIN 20 MG TAB PO SCH (21:35)
[2019-11-07] MEDS: POTASSIUM CHLORIDE 10 MEQ SR TABLET PO SCH (21:38)
[2019-11-07] MEDS: WARFARIN SOD 2 MG TAB PO SCH (21:38)
[2019-11-08] VITALS (16 sets, daily range): BP systolic 115–137; BP diastolic 70–87; O2SAT 90–100
[2019-11-08] MEDS: FUROSEMIDE 40 MG/4 ML VIAL (J1940) IV SCH ×4 (00:56→18:05)
[2019-11-08] MEDS: MEROPENEM INJ 1 GM in IV 1 EA IV SCH (00:56)
[2019-11-08] MEDS: NORCO, ANEXSIA 5/325MG TABLET (HYDROcodone/ACETAMINOPHEN) PO PRN ×3 (01:34→21:20)
[2019-11-08] MEDS: LEVALBUTEROL 1.25 MG/0.5 ML CONCENTRATE NEB NEB SCH ×6 (04:00→20:11)
[2019-11-08] MEDS: VANCOMYCIN HCL 750 MG, VIAL MATE ADAPTER 1 EACH in D5W 250 ML IV SCH (05:57)
[2019-11-08] MEDS: VANCOMYCIN HCL 500 MG in D5W MINI-BAG PLUS 100 ML IV SCH (05:57)
[2019-11-08] MEDS: SLF 3 ML SYR IV SCH ×3 (05:58→21:17)
[2019-11-08 06:25] LABS: BASO # 0.1 10^3/uL (0.0-0.2); BASO % 0.6 % (0.0-1.0); EOS # 0.3 10^3/uL (0.0-0.5); EOS % 2.3 % (0.0-3.0); HEMATOCRIT 31.4 % (42.0-52.0); HEMOGLOBIN 9.7 g/dl (13.5-17.5); LYMPH # 1.8 10^3/uL (1.5-5.0); LYMPH % 12.4 % (24.0-44.0); MEAN CORPUSCULAR HEMOGLOBIN 28.4 pg (27.0-33.0); MEAN CORPUSCULAR HGB CONC 30.9 g/dl (32.0-36.5); MEAN CORPUSCULAR VOLUME 92.1 fl (80.0-96.0); MONO # 1.5 10^3/uL (0.0-0.8); MONO % 10.2 % (0.0-5.0); NEUTROPHILS # 10.2 10^3/uL (1.5-8.5); NEUTROPHILS % 70.8 % (36.0-66.0); PLATELET COUNT, AUTOMATED 444 10^3/uL (150-450); RED BLOOD COUNT 3.41 10^6/uL (4.30-6.10); WHITE BLOOD COUNT 14.4 10^3/uL (4.0-10.0)
[2019-11-08 06:37] LABS: BLOOD UREA NITROGEN 21 MG/DL (7-18); CALCIUM LEVEL 8.1 MG/DL (8.8-10.2); CARBON DIOXIDE LEVEL 32 MEQ/L (21-32); CHLORIDE LEVEL 103 MEQ/L (98-107); GLOMERULAR FILTRATION RATE > 60.0 (>49); GLUCOSE, FASTING 103 MG/DL (70-100); MAGNESIUM LEVEL 2.1 MG/DL (1.8-2.4); POTASSIUM SERUM 4.1 MEQ/L (3.5-5.1); SODIUM LEVEL 139 MEQ/L (136-145)
[2019-11-08 06:38] LABS: INR 1.56; PROTHROMBIN TIME 18.5 SECONDS (11.8-14.0)
[2019-11-08] MEDS: METOPROLOL TART 50 MG TAB PO SCH ×2 (08:22→21:14)
[2019-11-08] MEDS: ASCORBIC ACID 500 MG TAB PO SCH (08:22)
[2019-11-08] MEDS: POTASSIUM CHLORIDE 10 MEQ SR TABLET PO SCH ×2 (08:22→21:17)
[2019-11-08] MEDS: FERROUS GLUCONATE 324 MG TAB PO SCH ×2 (08:23→21:17)
[2019-11-08] MEDS: ASPIRIN 81 MG ENTERIC TAB PO SCH (08:23)
[2019-11-08] MEDS: AMIODARONE 200 MG TAB (PACERONE) PO SCH ×2 (08:23→21:16)
[2019-11-08] MEDS: LACTOBACILLUS ACIDOPHILUS CAP (BACID) PO SCH ×4 (08:23→21:16)
[2019-11-08] MEDS: FOLIC ACID 1 MG TAB PO SCH (08:23)
[2019-11-08] MEDS: PHENAZOPYRIDINE 100 MG TAB PO SCH ×3 (10:16→21:14)
[2019-11-08] MEDS ORDERED: CEPACOL LOZENGE PO PRN (16:30)
--- NOTE | 2019-11-08 20:13 | IPN ---
DATE: 11/08/2019 The patient is anxious to move around and resume his physical therapy (PT). His breathing is much improved after diuresing and being net negative balance. The patient denies any dizziness, lightheadedness. Denies any cough, fever or chills. Ambulating well without dyspnea on exertion. PHYSICAL EXAMINATION: VITAL SIGNS: Temperature 97.3, pulse 85, respiratory rate 20, blood pressure 137/71, 93% on room air. GENERAL: The patient is awake, alert, oriented times three. Answers questions appropriately. No use of respiratory accessory muscles. No conversational dyspnea. No jugular venous distention (JVD). No thyromegaly. No cervical lymphadenopathy. Moist mucous membranes. THe patient has a drain, postsurgical changes in the sternum, as well as lower abdomen, which are erythematous, nontender, no drainage. LUNGS: Diminished with bibasilar crackles. Air entry is equal bilaterally. HEART: S1, S2. Sinus rhythm. ABDOMEN: Soft, nontender, nondistended. Positive bowel sounds. EXTREMITIES: 2+ edema. The patient has zaynab in the right medial lower extremity, appears clean with no purulence or serous drainage. LABORATORY DATA: White count 14.4, hemoglobin 9.7, hematocrit 31, platelet count 444. Sodium 139, potassium 4.0, chloride 103, bicarbonate 32, BUN 21, creatinine 1.1, glucose 103, procalcitonin 0.23. BNP 1186. Methicillin resistant Staphylococcus aureus (MRSA) PCR not detected. Sputum culture pending. Respiratory panel negative. Two sets of blood cultures negative. Urine culture is pending. Repeat chest x-ray on 11/07/2019 showed cardiomegaly with small bilateral effusions, consistent with some degree of congestive heart failure (CHF). Input and output: Input of 2235, output 3400, negative 1165. Current weight is 111.8 kg, admission weight 113.6 kg. ASSESSMENT AND PLAN: This is a 68-year-old male with recent coronary artery bypass graft (CABG) times four vessels, aortic valve replacement, bioprosthetic, sleep apnea, peripheral arterial disease, atrial fibrillation, status post ablation, history of pulmonary embolism on chronic warfarin, presented to the emergency room one day after being discharged from [facility] where he was admitted from 10/26 to 11/05/2019 for coronary artery bypass graft (CABG) and aortic valve replacement. The complained of worsening shortness of breath, unable to ambulate, and was found to be in decompensated heart failure, which is new onset. There was a concern initially for possible pneumonia. He was treated for hospital acquired/healthcare associated pneumonia with vancomycin and Zosyn, both antibiotics discontinued due to procalcitonin that is low and improvement with diuresis. IMPRESSION: 1. Congestive heart failure (CHF), acute systolic dysfunction with preserved systolic ejection fraction, acute onset. The patient has been kept on strict input and output, daily weights, fluid restriction. He is currently on Lasix 40 mg, as well as salt and fluid restriction, diuresing well with decrease in weight. 2-D echo showed normal systolic ejection fraction with grade I diastolic dysfunction. 2. Coronary artery disease, coronary artery bypass graft (CABG) times four vessels. Continue all postoperative recommendations per his cardiothoracic surgeon. Followup is on Sunday. 3. Urine retention requiring Mata catheter. Most likely secondary to opioid narcotic side effect. The patient is much more comfortable today once the Mata had been placed yesterday. Urine output appears to be adequate. MTDD
[2019-11-08] MEDS: ATORVASTATIN 20 MG TAB PO SCH (21:15)
[2019-11-08] MEDS: WARFARIN SOD 2 MG TAB PO SCH (21:17)
[2019-11-09] VITALS (22 sets, daily range): BP systolic 100–125; BP diastolic 63–78; O2SAT 91–97
[2019-11-09] MEDS: LEVALBUTEROL 1.25 MG/0.5 ML CONCENTRATE NEB NEB SCH ×6 (00:29→20:47)
[2019-11-09] MEDS: FUROSEMIDE 40 MG/4 ML VIAL (J1940) IV SCH ×4 (00:37→18:00)
[2019-11-09 05:35] LABS: BASO # 0.1 10^3/uL (0.0-0.2); BASO % 0.4 % (0.0-1.0); EOS # 0.3 10^3/uL (0.0-0.5); EOS % 2.3 % (0.0-3.0); HEMATOCRIT 31.4 % (42.0-52.0); LYMPH # 1.7 10^3/uL (1.5-5.0); LYMPH % 12.1 % (24.0-44.0); MEAN CORPUSCULAR HEMOGLOBIN 28.7 pg (27.0-33.0); MEAN CORPUSCULAR HGB CONC 31.8 g/dl (32.0-36.5); MONO # 1.2 10^3/uL (0.0-0.8); MONO % 8.8 % (0.0-5.0); NEUTROPHILS # 10.3 10^3/uL (1.5-8.5); PLATELET COUNT, AUTOMATED 440 10^3/uL (150-450); RED BLOOD COUNT 3.49 10^6/uL (4.30-6.10); WHITE BLOOD COUNT 13.9 10^3/uL (4.0-10.0)
[2019-11-09 05:45] LABS: INR 1.7; PROTHROMBIN TIME 19.7 SECONDS (11.8-14.0)
[2019-11-09 06:04] LABS: BLOOD UREA NITROGEN 23 MG/DL (7-18); CALCIUM LEVEL 8.4 MG/DL (8.8-10.2); CARBON DIOXIDE LEVEL 31 MEQ/L (21-32); CHLORIDE LEVEL 100 MEQ/L (98-107); CREATININE FOR GFR 1.09 MG/DL (0.70-1.30); GLOMERULAR FILTRATION RATE > 60.0 (>49); GLUCOSE, FASTING 101 MG/DL (70-100); MAGNESIUM LEVEL 2.1 MG/DL (1.8-2.4); POTASSIUM SERUM 3.7 MEQ/L (3.5-5.1); SODIUM LEVEL 137 MEQ/L (136-145)
[2019-11-09] MEDS: SLF 3 ML SYR IV SCH ×3 (06:36→20:38)
[2019-11-09] MEDS: LACTOBACILLUS ACIDOPHILUS CAP (BACID) PO SCH ×4 (07:55→20:36)
--- NOTE | 2019-11-09 08:59 | REP ---
Clinical: Shortness of breath. Technique: PA and lateral. Comparison: 11/07/2019. Findings: Mediastinum and cardiac silhouette are stable with cardiomegaly again noted. Evidence of prior sternotomy, CABG, and cardiac valve repair. Bibasilar atelectasis and small pleural effusions again noted and unchanged. No pneumothorax. Skeletal structures intact. Impression: 1. Stable cardiomegaly. 2. Bibasilar atelectasis and small pleural effusions unchanged. Electronically Signed by Huber Weiner MD 11/09/2019 08:51 A
[2019-11-09] MEDS: FOLIC ACID 1 MG TAB PO SCH (10:08)
[2019-11-09] MEDS: ASPIRIN 81 MG ENTERIC TAB PO SCH (10:08)
[2019-11-09] MEDS: FERROUS GLUCONATE 324 MG TAB PO SCH ×2 (10:09→20:35)
[2019-11-09] MEDS: ASCORBIC ACID 500 MG TAB PO SCH (10:09)
[2019-11-09] MEDS: AMIODARONE 200 MG TAB (PACERONE) PO SCH ×2 (10:09→20:35)
[2019-11-09] MEDS: NORCO, ANEXSIA 5/325MG TABLET (HYDROcodone/ACETAMINOPHEN) PO PRN ×2 (10:10→20:38)
[2019-11-09] MEDS: METOPROLOL TART 50 MG TAB PO SCH ×2 (10:18→20:36)
[2019-11-09] MEDS: PHENAZOPYRIDINE 100 MG TAB PO SCH ×3 (10:19→20:36)
[2019-11-09] MEDS: POTASSIUM CHLORIDE 10 MEQ SR TABLET PO SCH ×2 (10:19→20:37)
[2019-11-09] MEDS ORDERED: metOLazone 5 MG TAB PO ONE (11:30)
--- NOTE | 2019-11-09 13:08 | IPNPDOC ---
Date Seen The patient was seen on 11/09/19. Progress Note Subjective: still c/o dyspnea on exertion. able to lay flatter on the bed without sob with one pillow. ambulating well. LE edema better. net negative since admission. c/o thirst with dry lips, asked his to bring in lip balm. no dizziness, lightheadedness or chest pain. no dysuria or suprapubic pain since arteaga placed. Objective: Vitals: pls see below Generally awake, alert, oriented times three answering questions appropriately. sitting on a chair at the bedside. dark yellow urine in arteaga bag. Patient had no conversational dyspnea. No use of respiratory accessory muscles. Lungs: Diminished breath sounds with crackles at the bases. Patient has a tube Heart S1, S2, sinus rhythm. Abdomen is soft, nontender, nondistended. Positive bowel sounds. Patient has well-healed scars, nontender, non erythematous. No drainage. Extremities: 1+ pitting edema. graft site on right medial leg appears clean and dry no serous drainage or erythema. LABORATORY DATA: pls see below Respiratory panel negative. Staphylococcus aureus (MRSA) screen negative. Sputum culture pending. Blood culture: No growth over 24 hours and pending. Repeat chest x-ray 11/07/2019: Congestive heart failure, small bilateral effusions consistent with CHF. ASSESSMENT/PLAN: This is a 68-year-old male with recent CABG times four vessels, aortic valve replacement bioprosthesis, sleep apnea, peripheral arterial disease, atrial fibrillation status post ablation, history of pulmonary embolus (PE) on chronic warfarin presented to the emergency room after being 1 day from [facility] where he was admitted from 10/26/2019 to 11/05/2019 after he presented with shortness of breath and chest pain and underwent CABG and aortic valve replacement. Found to have an infiltrate on CT chest and moderate pleural effusions, 3+ edema with cough, paroxysmal nocturnal dyspnea and three-pillow orthopnea. Patient is admitted for new onset of congestive heart failure as well as possible hospital-acquired pneumonia. IMPRESSION: Congestive heart failure, acute diastolic dysfunction with preserved systolic ejection fraction. Patient is kept on strict input and output daily weights. He has been net negative balance. He is placed on fluid restriction. Patient says that he has not had any significant improvement yet. No acute coronary syndrome on cardiac markers or EKG. 2D echo shows no wall motion abnormality, ejection is well preserved with grade 1 diastolic dysfunction. weight loss since admission. anxious to go home for fu with his cardiothoracic surgeon on Sunday morning. added zaroxolyn for better diuresis. no orthostatic complaints. may dc in am. monitor creatinine and electrolytes. Coronary artery disease (CAD) CABG: He is continued on recommended medications postoperatively. He is currently on amiodarone, aspirin, atorvastatin, metoprolol, warfarin. Pain control with hydrocodone. Urine retention most likely secondary to pain medications. trial of void in am. arteaga for urine retention and strict i/o. Chronic anemia: Continue on Fergon. DISPOSITION: dc in am if euvolemic and passes HSE. VS, I&O, 24H, Fishbone Vital Signs/I&O Vital Signs Date Time Temp Pulse Resp B/P (MAP) Pulse Ox O2 Delivery O2 Flow Rate FiO2 11/09/19 10:40 20 Room Air 11/09/19 10:18 95 113/63 11/09/19 08:00 97.3 92 11/09/19 04:00 2.0 I&O- Last 24 Hours up to 6 AM 11/09/19 06:00 Intake Total 1510 ml Output Total 3700 ml Balance -2190 ml Laboratory Data 24H LABS Laboratory Tests 2 11/09/19 05:22: Immature Granulocyte % (Auto) 2.4, Neutrophils (%) (Auto) 74.0H, Lymphocytes (%) (Auto) 12.1L, Monocytes (%) (Auto) 8.8H, Eosinophils (%) (Auto) 2.3, Basophils (%) (Auto) 0.4, Neutrophils # (Auto) 10.3H, Lymphocytes # (Auto) 1.7, Monocytes # (Auto) 1.2H, Eosinophils # (Auto) 0.3, Basophils # (Auto) 0.1, Nucleated Red Blood Cells % (auto) 0.0, Prothrombin Time 19.7H, Prothromb Time International Ratio 1.70, Anion Gap 6L, Glomerular Filtration Rate > 60.0, Calcium Level 8.4L, Magnesium Level 2.1 CBC/BMP Laboratory Tests 11/09/19 05:22 Microbiology Microbiology 11/07/19 Urine Culture - Final, Complete 11/07/19 Gram Stain - Final, Complete 11/07/19 Sputum Culture - Final, Complete Yeast Like Organism 11/06/19 Respiratory Virus Panel (PCR) (CHERELLE) - Final, Complete 11/06/19 Blood Culture - Preliminary, Resulted No Growth after 72 hours. All specime... 11/06/19 Respiratory Virus Panel (PCR) (CHERELLE) - Final, Complete 11/06/19 Blood Culture - Preliminary, Resulted No Growth after 72 hours. All specime... ROXI ZAPATA MD Nov 09, 2019 13:07
[2019-11-09 14:02] LABS: MAGNESIUM LEVEL 2.3 MG/DL (1.8-2.4); POTASSIUM SERUM 4.5 MEQ/L (3.5-5.1)
[2019-11-09] MEDS: ATORVASTATIN 20 MG TAB PO SCH (20:35)
[2019-11-09] MEDS: WARFARIN SOD 2 MG TAB PO SCH (20:37)
[2019-11-10] VITALS (10 sets, daily range): BP systolic 104–130; BP diastolic 67–78; O2SAT 93–96
[2019-11-10] MEDS: LEVALBUTEROL 1.25 MG/0.5 ML CONCENTRATE NEB NEB SCH ×4 (00:21→12:28)
[2019-11-10 05:47] LABS: BASO # 0.1 10^3/uL (0.0-0.2); BASO % 0.4 % (0.0-1.0); EOS # 0.4 10^3/uL (0.0-0.5); EOS % 2.9 % (0.0-3.0); HEMATOCRIT 33.3 % (42.0-52.0); HEMOGLOBIN 10.4 g/dl (13.5-17.5); LYMPH % 14.2 % (24.0-44.0); MEAN CORPUSCULAR HGB CONC 31.2 g/dl (32.0-36.5); MEAN CORPUSCULAR VOLUME 89.8 fl (80.0-96.0); MONO # 1.1 10^3/uL (0.0-0.8); MONO % 8.1 % (0.0-5.0); PLATELET COUNT, AUTOMATED 451 10^3/uL (150-450); RED BLOOD COUNT 3.71 10^6/uL (4.30-6.10); WHITE BLOOD COUNT 13.8 10^3/uL (4.0-10.0)
[2019-11-10 05:57] LABS: INR 1.69; PROTHROMBIN TIME 19.6 SECONDS (11.8-14.0)
[2019-11-10 06:14] LABS: BLOOD UREA NITROGEN 21 MG/DL (7-18); CALCIUM LEVEL 8.7 MG/DL (8.8-10.2); CARBON DIOXIDE LEVEL 29 MEQ/L (21-32); CHLORIDE LEVEL 100 MEQ/L (98-107); CK-MB VALUE MASS < 1.0 NG/ML (<3.6); CPK CREATINE PHOSPHOKINASE 45 U/L (39-308); CREATININE FOR GFR 0.99 MG/DL (0.70-1.30); GLOMERULAR FILTRATION RATE > 60.0 (>42); GLUCOSE, FASTING 97 MG/DL (70-100); MAGNESIUM LEVEL 2.2 MG/DL (1.8-2.4); MB/CK RELATIVE INDEX 2.22 (< OR =4); NT-PRO BNP 622 PG/ML (<125); POTASSIUM SERUM 3.9 MEQ/L (3.5-5.1); SODIUM LEVEL 136 MEQ/L (136-145); TROPONIN I 0.18 NG/ML (< 0.10)
[2019-11-10] MEDS: SLF 3 ML SYR IV SCH (06:34)
[2019-11-10] MEDS: FUROSEMIDE 40 MG/4 ML VIAL (J1940) IV SCH ×2 (06:34)
[2019-11-10] MEDS ORDERED: metOLazone 5 MG TAB PO ONE (08:15)
[2019-11-10] MEDS ORDERED: FUROSEMIDE 20 MG TAB PO ONE (08:45)
--- NOTE | 2019-11-10 08:50 | REP ---
Clinical: shortness of breath. Comparison: 11/09/2019. Technique: PA and lateral. Findings: Cardiomegaly is stable. Small bilateral pleural effusions again identified and stable. The skeletal structures are intact and normal. Impression: 1. Stable cardiomegaly and effusions. Electronically Signed by Huber Weiner MD 11/10/2019 08:43 A
[2019-11-10] MEDS: PHENAZOPYRIDINE 100 MG TAB PO SCH (09:08)
[2019-11-10] MEDS: METOPROLOL TART 50 MG TAB PO SCH (09:09)
[2019-11-10] MEDS: POTASSIUM CHLORIDE 10 MEQ SR TABLET PO SCH (09:09)
[2019-11-10] MEDS: ASPIRIN 81 MG ENTERIC TAB PO SCH (09:09)
[2019-11-10] MEDS: AMIODARONE 200 MG TAB (PACERONE) PO SCH (09:10)
[2019-11-10] MEDS: FOLIC ACID 1 MG TAB PO SCH (09:10)
[2019-11-10] MEDS: LACTOBACILLUS ACIDOPHILUS CAP (BACID) PO SCH ×2 (09:10→12:55)
[2019-11-10] MEDS: ASCORBIC ACID 500 MG TAB PO SCH (09:10)
[2019-11-10] MEDS: FERROUS GLUCONATE 324 MG TAB PO SCH (09:10)
[2019-11-10 12:40] LABS: BLOOD UREA NITROGEN 24 MG/DL (7-18); CALCIUM LEVEL 9.6 MG/DL (8.8-10.2); CARBON DIOXIDE LEVEL 29 MEQ/L (21-32); CHLORIDE LEVEL 95 MEQ/L (98-107); CREATININE FOR GFR 1.14 MG/DL (0.70-1.30); GLOMERULAR FILTRATION RATE > 60.0 (>42); GLUCOSE, FASTING 98 MG/DL (70-100); MAGNESIUM LEVEL 2.3 MG/DL (1.8-2.4); POTASSIUM SERUM 3.7 MEQ/L (3.5-5.1); SODIUM LEVEL 133 MEQ/L (136-145)
[2019-11-10] MEDS ORDERED: POTASSIUM CHLORIDE 10 MEQ SR TABLET PO ONE (14:00)
[2019-11-11 00:06] LABS: BODY FLUID CULTURE Not indicated. (.); LEGIONELLA ANTIGEN URINE Negative (Negative); ORGANISM ID Not indicated. (.); SPECIMEN SOURCE Urine (.); URINE STREP PNEUMONIAE ANTIGEN Negative (Negative)
[2019-11-12] MEDS ORDERED: AMIODARONE 200 MG TAB (PACERONE) PO SCH (09:00)
[2019-11-19] MEDS ORDERED: AMIODARONE 200 MG TAB (PACERONE) PO SCH (09:00)
--- NOTE | 2019-11-20 17:27 | DSES ---
DATE OF ADMISSION: 11/06/2019 DATE OF DISCHARGE: 11/10/2019 PRIMARY DISCHARGE DIAGNOSES: 1. Acute diastolic congestive heart failure (CHF) with preserved systolic ejection fraction. 2. Coronary artery disease, coronary artery bypass graft (CABG). 3. Urinary retention, most likely secondary to pain medications. 4. Anemia of chronic disease. 5. Abnormal electrocardiogram (EKG) with first degree AV block and occasional premature ventricular contractions (PVCs). 6. CABG times four vessels, aortic valve replacement. 7. Obstructive sleep apnea. 8. Peripheral arterial disease. 9. Hyperlipidemia. 10. History of pulmonary embolism. DISCHARGE MEDICATIONS: - acetaminophen 650 mg by mouth four times a day - amiodarone 400 mg twice a day - vitamin D 500 mg daily - aspirin 81 mg daily - atorvastatin 80 mg at night - Colace 100 mg twice a day - ferrous gluconate 324 mg twice a day - folic acid 1 mg daily - Lasix 40 mg daily - hydrocodone/acetaminophen one to two tablets every 6 hours as needed for pain - metoprolol 50 mg twice a day - multivitamin one tablet daily - potassium chloride 20 mEq daily - Corder nasal spray two sprays in nares four times a day - warfarin 3 mg at night HOSPITAL COURSE: This is a 69-year-old male with recent coronary artery bypass graft (CABG) times four vessels, aortic valve replacement, discharged from [facility] on 11/05/2019 where he presented on 10/26/2019 for chest pain and shortness of breath. The patient underwent CABG with aortic valve replacement on 10/29/2019 and was discharged home on 11/05/2019. The day after hospital discharge, he was seen by home care nurse and was found to have worsening shortness of breath, unable to lie down and had to sit up at home. Discharge weight was 158.5 kg, he had worsening lower extremity edema, cough productive of white sputum. Without substernal chest pressure or tightness. The patient was seen in the emergency room at [facility] and was found to have pulmonary edema on chest x-ray, jugular venous distention (JVD) and lower extremity edema. BNP was 1105. Afebrile. CT of the chest showed moderate left sided effusion with bibasilar infiltrates. The hospitalist was called to admit for possible healthcare associated pneumonia, since the patient was recently discharged with congestive heart failure (CHF). EKG showed first degree AV block, sinus rhythm with ventricular rate of 76 and inferior myocardial infarction, age indeterminate, but no acute ST-T changes. Troponin was 0.33, total CK of 85, MB fraction 1.2, BNP of 1105. Per Dr. Bustamante, retail associate equipment installation professional by telephone consultation from the emergency room, it is unlikely that the patient has occlusion of the recently bypassed vessels, most likely only fluid overloaded from recent CABG. He recommended admission for diuresis. The patient was subsequently given 6 mg of intravenous Lasix and admitted to progressive care unit (PCU) under telemetry for congestive heart failure, diastolic dysfunction with preserved ejection fraction. THe patient's admission weight was 113.64 kg and discharge weight was 108.9 kg. He was initially given vancomycin for presumed healthcare associated pneumonia and ceftriaxone in the emergency room. Procalcitonin however was 0.23 and antibiotics were discontinued. Sputum culture grew out yeast-like organism. Respiratory panel was negative. Blood cultures were negative. He complains of urine retention. Mata catheter was placed. UA was negative for any bacteria. The patient had persistent leukocytosis, white count of 13.8 but no other focal infectious processes. CT of the chest showed moderate left pleural effusion with compression atelectasis, similar to prior study. Left lower lobe infiltrate not definitely visualized on portable film. Small lung nodules are unchanged. Small pericardial effusion. Interval placement of aortic valve and left atrial appendage occlusion device. Right lower lobe infiltrate, cardiomegaly unchanged. Echocardiogram read by Dr. Thong Bustamante on 11/06/2019 showed ejection fraction of 60%, normal left ventricular systolic function, reduced mitral annular tissue Doppler velocity suggestive of some degree of left ventricular diastolic dysfunction. Left pleural effusion, bioprosthetic aortic valve placement, which was structurally and functionally normal. No mitral regurgitation. Small pericardial effusion. No diastolic chamber collapse. Moderate degree of pulmonary hypertension. The patient had symptomatic improvement with weight loss. He remained net negative for 5 full days, negative 1.6 liters on the first day, 1.1 liters on the second day, 1.4 liters the third day, negative 2.4 liters on the fourth day, negative 895 mL on the day of hospital discharge. Creatinine remained stable at 1.14 with admission creatinine 0.92, remained at stage I chronic kidney disease. PHYSICAL EXAMINATION: On hospital discharge: VITAL SIGNS: Temperature 97.9, pulse 85, respiratory rate 28, blood pressure 104/67, 97% on 2 liters nasal cannula. GENERAL: The patient is awake, alert, oriented times three. No conversational dyspnea. No use of respiratory accessory muscles. Able to speak in full sentences. LUNGS: Diminished bibasilar crackles. Sternotomy scar, well healed. The patient continues to have a drain from prior aortic valve replacement. ABDOMEN: Soft, nontender, nondistended. Positive bowel sounds. No rebound or guarding. No hepatosplenomegaly. No abdominal bruits. EXTREMITIES: 1 to 2+ pitting edema. Right medial leg graft site clean and dry. No serous drainage or erythema. LABORATORY DATA: White count 13.8, hemoglobin 10, hematocrit 33, platelet count 451. Sodium 133k, potassium 3.7, chloride 95, bicarbonate 29, BUN 24, creatinine 1.14, glucose 98. Calcium 9.6, magnesium 2.3. INR 1.69. Methicillin resistant Staphylococcus aureus (MRSA) screen negative. Urine Strep pneumoniae negative. Urine Legionella negative. Respiratory panel on 11/06/2019 negative. Sputum culture with yeast-like organism. Urine culture normal with no growth. Two sets of blood cultures 11/06/2019 with no growth after 5 days. IMAGING STUDIES: Chest CT on 11/06/2019 showed moderate left pleural effusion, compression atelectasis of adjacent lung. Left lower lobe infiltrate, not definitively visualized on portable plain film. Small lung nodules, unchanged. Small pericardial effusion, cardiomegaly, interval placement of aortic valve and left atrial appendage occlusion device. Left lower lobe pleural effusion with atelectasis. Right lower lobe infiltrate. Echocardiogram on 11/06/2019 showed mild concentric LVH, normal regional left ventricular wall motion and wall thickening. Normal LV systolic function. Left ventricular ejection fraction 60% by visual estimate. Reduced mitral annular tissue Doppler velocity suggestive of some degree of left ventricular diastolic dysfunction. Left pleural effusion, status post aortic valve replacement, bioprosthesis, which was structurally and functionally normal. Appearance of moderate mitral annular calcification and mitral regurgitation or stenosis. Small pericardial effusion, no diastolic chamber collapse, abbreviated pulmonary acceleration time suggestive of probable moderate degree of pulmonary hypertension, moderately technically difficult echocardiogram. Ejection fraction 60%. Time spent on discharge: 30 minutes. [facility]
== END 2019-11-10 14:40 | disposition home health service (06) | DRG 292 ==
LOC: M ED 08:14 → M ED INP 11:31 → ENRESERV 12:03 → M MSPAV 12:57 → M PCU 13:46
PROVIDERS: ADMIT General Practice; ATTEND General Practice
DX: I50.31 Acute diastolic (congestive) heart failure (principal); I48.20 Chronic atrial fibrillation, unspecified; Z95.1 Presence of aortocoronary bypass graft; I25.10 Atherosclerotic heart disease of native coronary artery without angina pectoris; G47.33 Obstructive sleep apnea (adult) (pediatric); I73.9 Peripheral vascular disease, unspecified; E78.5 Hyperlipidemia, unspecified; Z86.711 Personal history of pulmonary embolism; Z88.0 Allergy status to penicillin; Z95.2 Presence of prosthetic heart valve; Z79.82 Long term (current) use of aspirin; Z79.899 Other long term (current) drug therapy; R91.8 Other nonspecific abnormal finding of lung field; Z79.01 Long term (current) use of anticoagulants; R33.9 Retention of urine, unspecified

== ENCOUNTER → 2019-12-03 | Outpatient (REF) | payer MEDICARE ==
[~2019-12-03] MED LIST changes: +ACET-907 PO; +AMIO200T40 PO; +ASPI81CH33 PO; +ASPI81TA26 PO; +ATOR80TA59 PO; +DAILTAB51 PO; +DOCU100C16 PO; +FERR325T16 PO; +FOLI1TAB11 PO; +FURO40TA2 PO; +HYDR-3713 PO; +LOPR1TAB6 PO; +OCEA0.654 NARES; +POTA1TAB14 PO; +VITA500C24 PO; +WARF-58 PO; +WARF4TAB51 PO
[2019-12-03 16:53] LABS: BLOOD UREA NITROGEN 22 MG/DL (7-18); CALCIUM LEVEL 9.5 MG/DL (8.8-10.2); CARBON DIOXIDE LEVEL 28 MEQ/L (21-32); CHLORIDE LEVEL 105 MEQ/L (98-107); CREATININE FOR GFR 0.96 MG/DL (0.70-1.30); GLOMERULAR FILTRATION RATE > 60.0 (>42); GLUCOSE, FASTING 80 MG/DL (70-100); MAGNESIUM LEVEL 2.4 MG/DL (1.8-2.4); POTASSIUM SERUM 4.8 MEQ/L (3.5-5.1); SODIUM LEVEL 137 MEQ/L (136-145)
[2019-12-03 16:54] LABS: HEMATOCRIT 43.2 % (42.0-52.0); HEMOGLOBIN 13.4 g/dl (13.5-17.5); MEAN CORPUSCULAR HEMOGLOBIN 27.9 pg (27.0-33.0); MEAN CORPUSCULAR VOLUME 89.8 fl (80.0-96.0); PLATELET COUNT, AUTOMATED 286 10^3/uL (150-450); RED BLOOD COUNT 4.81 10^6/uL (4.30-6.10); WHITE BLOOD COUNT 8.8 10^3/uL (4.0-10.0)
[2019-12-03 17:25] LABS: INR 1.56; PROTHROMBIN TIME 18.5 SECONDS (11.8-14.0)
== END ==
LOC: M LAB REF 16:20
PROVIDERS: ATTEND Physician Assistant
DX: I48.3 Typical atrial flutter (principal); I48.0 Paroxysmal atrial fibrillation; I25.10 Atherosclerotic heart disease of native coronary artery without angina pectoris; I50.31 Acute diastolic (congestive) heart failure

== ENCOUNTER → 2020-01-01 | Outpatient (REF) | payer MEDICARE ==
[2020-01-01 16:27] LABS: INR 1.56; PROTHROMBIN TIME 18.4 SECONDS (11.8-14.0)
== END ==
LOC: M LABDRAWC 15:54
PROVIDERS: ATTEND Physician Assistant
DX: I48.3 Typical atrial flutter (principal)

== ENCOUNTER → 2020-01-19 | Outpatient (REF) | payer MEDICARE ==
[2020-01-19 16:24] LABS: INR 1.36; PROTHROMBIN TIME 16.5 SECONDS (11.8-14.0)
== END ==
LOC: M LABDRAWC 15:55
PROVIDERS: ATTEND Physician Assistant
DX: I48.3 Typical atrial flutter (principal)

== ENCOUNTER → 2020-02-05 | Outpatient (REF) | payer MEDICARE ==
[2020-02-05 12:09] LABS: INR 1.19; PROTHROMBIN TIME 14.8 SECONDS (11.8-14.0)
== END ==
LOC: M LABDRAWC 11:11
PROVIDERS: ATTEND Physician Assistant
DX: I48.3 Typical atrial flutter (principal)

== ENCOUNTER → 2020-03-03 | Outpatient (REF) | payer MEDICARE ==
[2020-03-03 11:43] LABS: INR 1.62
== END ==
LOC: M LABDRAWC 10:50
PROVIDERS: ATTEND Physician Assistant
DX: I48.3 Typical atrial flutter (principal)

== ENCOUNTER → 2020-03-17 | Outpatient (REF) | payer MEDICARE ==
[2020-03-17 16:37] LABS: INR 1.67; PROTHROMBIN TIME 19.4 SECONDS (11.8-14.0)
== END ==
LOC: M LABDRAWC 16:02
PROVIDERS: ATTEND Physician Assistant
DX: I48.3 Typical atrial flutter (principal)

== ENCOUNTER → 2020-04-08 | Outpatient (REF) | payer MEDICARE ==
[2020-04-08 13:05] LABS: INR 1.46; PROTHROMBIN TIME 17.5 SECONDS (11.8-14.0)
== END ==
LOC: M LABDRAWC 11:17
PROVIDERS: ATTEND Physician Assistant
DX: Z79.01 Long term (current) use of anticoagulants (principal)

== ENCOUNTER → 2020-04-28 | Outpatient (REF) | payer MEDICARE ==
[2020-05-24 09:00] LABS: INR 1.98
== END ==
LOC: M LABDRAWC 12:26
PROVIDERS: ATTEND Physician Assistant
DX: I48.3 Typical atrial flutter (principal)

== ENCOUNTER → 2020-05-24 | Outpatient (REF) | payer MEDICARE ==
[2020-05-24 13:02] LABS: HEMATOCRIT 44.8 % (42.0-52.0); HEMOGLOBIN 14.3 g/dl (13.5-17.5); MEAN CORPUSCULAR HEMOGLOBIN 28.6 pg (27.0-33.0); MEAN CORPUSCULAR HGB CONC 31.9 g/dl (32.0-36.5); MEAN CORPUSCULAR VOLUME 89.6 fl (80.0-96.0); PLATELET COUNT, AUTOMATED 194 10^3/uL (150-450); WHITE BLOOD COUNT 5.7 10^3/uL (4.0-10.0)
[2020-05-24 13:21] LABS: INR 1.24; PROTHROMBIN TIME 15.9 SECONDS (11.8-14.0)
[2020-05-24 13:25] LABS: ALT/SGPT 22 U/L (12-78); BLOOD UREA NITROGEN 24 MG/DL (7-18); CALCIUM LEVEL 8.6 MG/DL (8.8-10.2); CARBON DIOXIDE LEVEL 30 MEQ/L (21-32); CHLORIDE LEVEL 106 MEQ/L (98-107); CREATININE FOR GFR 0.92 MG/DL (0.70-1.30); GLOMERULAR FILTRATION RATE > 60.0 (>42); GLUCOSE, FASTING 89 MG/DL (70-100); POTASSIUM SERUM 4.2 MEQ/L (3.5-5.1); SODIUM LEVEL 138 MEQ/L (136-145)
[2020-05-24 13:26] LABS: ALBUMIN 3.8 GM/DL (3.2-5.2); BILIRUBIN,TOTAL 0.9 MG/DL (0.2-1.0); CHOLESTEROL LEVEL 160 MG/DL (<200); HDL CHOLESTEROL 32 MG/DL (>40); LDL CHOLESTEROL 88 MG/DL (<100); NON-HDL-C 128 MG/DL; TOTAL PROTEIN 6.7 GM/DL (6.4-8.2); TRIGLYCERIDES LEVEL 198 MG/DL (<150)
== END ==
LOC: M LABDRAWC 11:26
PROVIDERS: ATTEND Physician Assistant
DX: I50.32 Chronic diastolic (congestive) heart failure (principal); I25.10 Atherosclerotic heart disease of native coronary artery without angina pectoris; I48.0 Paroxysmal atrial fibrillation; E78.2 Mixed hyperlipidemia; I48.3 Typical atrial flutter

== ENCOUNTER → 2020-06-10 | Outpatient (REF) | payer MEDICARE ==
[2020-06-10 14:10] LABS: INR 2.53; PROTHROMBIN TIME 27.9 SECONDS (11.8-14.0)
== END ==
LOC: M LABDRAWC 11:51
PROVIDERS: ATTEND Physician Assistant
DX: I48.0 Paroxysmal atrial fibrillation (principal); Z79.01 Long term (current) use of anticoagulants

== ENCOUNTER → 2020-08-02 | Outpatient (REF) | payer MEDICARE ==
[2020-08-02 12:16] LABS: INR 2.56; PROTHROMBIN TIME 28.1 SECONDS (12.5-14.3)
== END ==
LOC: M LABDRAWC 11:29
PROVIDERS: ATTEND Physician Assistant
DX: I48.0 Paroxysmal atrial fibrillation (principal); Z79.01 Long term (current) use of anticoagulants

== ENCOUNTER → 2020-09-16 | Outpatient (REF) | payer MEDICARE ==
[2020-09-16 11:50] LABS: INR 2.49; PROTHROMBIN TIME 27.5 SECONDS (12.5-14.3)
== END ==
LOC: M LAB REF 11:04
PROVIDERS: ATTEND Physician Assistant
DX: I48.0 Paroxysmal atrial fibrillation (principal); Z79.01 Long term (current) use of anticoagulants

== ENCOUNTER → 2020-10-19 | Outpatient (REF) | payer MEDICARE ==
[2020-10-19 12:24] LABS: INR 2.62; PROTHROMBIN TIME 28.6 SECONDS (12.5-14.3)
== END ==
LOC: M LABDRAWC 11:30
PROVIDERS: ATTEND Physician Assistant
DX: I48.0 Paroxysmal atrial fibrillation (principal); Z79.01 Long term (current) use of anticoagulants

== ENCOUNTER → 2020-11-26 | Outpatient (REF) | payer MEDICARE ==
[2020-11-26 12:12] LABS: HEMATOCRIT 47.4 % (42.0-52.0); HEMOGLOBIN 14.9 g/dl (13.5-17.5); MEAN CORPUSCULAR HEMOGLOBIN 28.2 pg (27.0-33.0); MEAN CORPUSCULAR HGB CONC 31.4 g/dl (32.0-36.5); MEAN CORPUSCULAR VOLUME 89.8 fl (80.0-96.0); PLATELET COUNT, AUTOMATED 184 10^3/uL (150-450); RED BLOOD COUNT 5.28 10^6/uL (4.30-6.10)
[2020-11-26 12:39] LABS: BLOOD UREA NITROGEN 26 MG/DL (7-18); CALCIUM LEVEL 8.8 MG/DL (8.8-10.2); CARBON DIOXIDE LEVEL 29 MEQ/L (21-32); CHLORIDE LEVEL 107 MEQ/L (98-107); CREATININE FOR GFR 0.92 MG/DL (0.70-1.30); GLOMERULAR FILTRATION RATE > 60.0 (>42); GLUCOSE, FASTING 95 MG/DL (70-100); MAGNESIUM LEVEL 2.1 MG/DL (1.8-2.4); POTASSIUM SERUM 4.6 MEQ/L (3.5-5.1); SODIUM LEVEL 140 MEQ/L (136-145)
== END ==
LOC: M LABDRAWC 11:34
PROVIDERS: ATTEND Physician Assistant
DX: I50.32 Chronic diastolic (congestive) heart failure (principal); I48.0 Paroxysmal atrial fibrillation

== ENCOUNTER → 2020-12-09 | Outpatient (REF) | payer MEDICARE ==
[2020-12-09 11:38] LABS: INR 2.7; PROTHROMBIN TIME 29.3 SECONDS (12.5-14.3)
== END ==
LOC: M LABDRAWC 11:09
PROVIDERS: ATTEND Physician Assistant
DX: Z79.01 Long term (current) use of anticoagulants (principal); I48.0 Paroxysmal atrial fibrillation

== ENCOUNTER → 2020-12-20 | Outpatient (CLI) | payer SELFPAY | LOC: M LABSMTC 09:38 | PROVIDERS: ATTEND Pediatrics | DX: Z20.822 Contact with and (suspected) exposure to COVID-19 (principal) ==

== ENCOUNTER → 2021-01-10 | Outpatient (REF) | payer MEDICARE ==
[~2021-01-10] MED LIST changes: +FERR324T21 PO; -FERR325T16 PO
[2021-01-10 12:21] LABS: INR 3.32; PROTHROMBIN TIME 34.5 SECONDS (12.5-14.3)
== END ==
LOC: M LABDRAWC 11:01
PROVIDERS: ATTEND Physician Assistant
DX: I48.0 Paroxysmal atrial fibrillation (principal); Z79.01 Long term (current) use of anticoagulants

== ENCOUNTER → 2021-03-21 | Outpatient (REF) | payer MEDICARE ==
[2021-03-21 12:18] LABS: INR 2.51; PROTHROMBIN TIME 27.7 SECONDS (12.5-14.3)
== END ==
LOC: M LABDRAWC 11:19
PROVIDERS: ATTEND Physician Assistant
DX: I48.0 Paroxysmal atrial fibrillation (principal); Z79.01 Long term (current) use of anticoagulants

== ENCOUNTER → 2021-04-27 | Outpatient (REF) | payer MEDICARE ==
[2021-04-27 16:20] LABS: INR 2.16; PROTHROMBIN TIME 24.6 SECONDS (12.5-14.3)
== END ==
LOC: M LABDRAWC 15:42
PROVIDERS: ATTEND Physician Assistant
DX: I48.0 Paroxysmal atrial fibrillation (principal); Z79.01 Long term (current) use of anticoagulants

== ENCOUNTER → 2021-05-17 | Outpatient (CLI) | payer MEDICARE ==
--- NOTE | 2021-05-17 10:27 | REP ---
INDICATION: M25.511, M25.512, BILATERAL SHOULDER PAIN. COMPARISON: None. TECHNIQUE: Three views of the bilateral shoulder were performed. FINDINGS: Right shoulder: There is moderate hypertrophic degenerative change seen involving the acromioclavicular joint with a spur arising from the inferior surface of the clavicle at the AC joint. There is narrowing of the subacromial space. There is evidence of humeral head marginal osteophyte formation. The glenohumeral relationship is within normal limits. There is no acute fracture, dislocation, or subluxation. Left shoulder: There is mild hypertrophic degenerative change seen involving the acromioclavicular joint. There is mild humeral head marginal osteophyte formation. There is subacromial space narrowing. There is no acute fracture, dislocation, or subluxation. IMPRESSION: Bilateral degenerative changes as described above. <Electronically signed by Rikki Mason > 05/17/21 1028
== END ==
LOC: M CLY 09:46
PROVIDERS: ATTEND Family Medicine
DX: M25.511 Pain in right shoulder (principal); M25.512 Pain in left shoulder

== ENCOUNTER → 2021-06-02 | Outpatient (REF) | payer MEDICARE ==
[2021-06-02 11:34] LABS: INR 2.16; PROTHROMBIN TIME 24.5 SECONDS (12.7-14.5)
[2021-06-02 11:52] LABS: ALBUMIN 3.6 GM/DL (3.2-5.2); ALT/SGPT 26 U/L (12-78); BILIRUBIN,TOTAL 0.7 MG/DL (0.2-1.0); BLOOD UREA NITROGEN 20 MG/DL (7-18); CARBON DIOXIDE LEVEL 28 MEQ/L (21-32); CHLORIDE LEVEL 107 MEQ/L (98-107); CHOLESTEROL LEVEL 174 MG/DL (<200); CHOLESTEROL RISK RATIO 4.578 (<5); CREATININE FOR GFR 1.03 MG/DL (0.70-1.30); GLOMERULAR FILTRATION RATE > 60.0 (>42); GLUCOSE, FASTING 97 MG/DL (70-100); HDL CHOLESTEROL 38 MG/DL (>40); LDL CHOLESTEROL 103 MG/DL (<100); MAGNESIUM LEVEL 2.2 MG/DL (1.8-2.4); NON-HDL-C 136 MG/DL; POTASSIUM SERUM 4.4 MEQ/L (3.5-5.1); SODIUM LEVEL 139 MEQ/L (136-145); TOTAL PROTEIN 6.6 GM/DL (6.4-8.2); TRIGLYCERIDES LEVEL 167 MG/DL (<150)
== END ==
LOC: M LABDRAWC 10:21
PROVIDERS: ATTEND Physician Assistant
DX: I48.0 Paroxysmal atrial fibrillation (principal); I50.32 Chronic diastolic (congestive) heart failure; E78.2 Mixed hyperlipidemia; I25.10 Atherosclerotic heart disease of native coronary artery without angina pectoris

== ENCOUNTER → 2021-07-22 | Outpatient (REF) | payer MEDICARE ==
[2021-07-22 11:37] LABS: INR 3.84
== END ==
LOC: M LABDRAWC 11:07
PROVIDERS: ATTEND Physician Assistant
DX: I48.0 Paroxysmal atrial fibrillation (principal)

== ENCOUNTER → 2021-08-11 | Outpatient (REF) | payer MEDICARE ==
[2021-08-11 12:16] LABS: INR 3.51; PROTHROMBIN TIME 35.5 SECONDS (12.7-14.5)
== END ==
LOC: M LABDRAWC 11:28
PROVIDERS: ATTEND Physician Assistant
DX: I48.0 Paroxysmal atrial fibrillation (principal)

== ENCOUNTER → 2021-09-01 | Outpatient (REF) | payer MEDICARE ==
[2021-09-01 11:29] LABS: INR 1.24
== END ==
LOC: M LABDRAWC 10:54
PROVIDERS: ATTEND Physician Assistant
DX: I48.0 Paroxysmal atrial fibrillation (principal)

== ENCOUNTER → 2021-10-07 | Outpatient (REF) | payer MEDICARE ==
[2021-10-07 12:16] LABS: INR 2.67; PROTHROMBIN TIME 28.8 SECONDS (12.7-14.5)
== END ==
LOC: M LABDRAWC 11:32
PROVIDERS: ATTEND Physician Assistant
DX: I48.0 Paroxysmal atrial fibrillation (principal)

== ENCOUNTER → 2021-11-23 | Outpatient (REF) | payer MEDICARE ==
[2021-11-23 16:32] LABS: INR 3.07
== END ==
LOC: M LABDRAWC 15:32
PROVIDERS: ATTEND Physician Assistant
DX: I48.0 Paroxysmal atrial fibrillation (principal); Z79.01 Long term (current) use of anticoagulants

== ENCOUNTER → 2021-12-12 | Outpatient (REF) | payer MEDICARE ==
[2021-12-12 11:48] LABS: INR 2.59; PROTHROMBIN TIME 28.1 SECONDS (12.7-14.5)
== END ==
LOC: M LABDRAWC 11:15
PROVIDERS: ATTEND Physician Assistant
DX: I48.0 Paroxysmal atrial fibrillation (principal)

== ENCOUNTER → 2021-12-12 | Outpatient (REF) | payer MEDICARE ==
[2021-12-12 11:35] LABS: HEMATOCRIT 48.4 % (42.0-52.0); HEMOGLOBIN 15.5 g/dl (13.5-17.5); MEAN CORPUSCULAR HEMOGLOBIN 28.2 pg (27.0-33.0); MEAN CORPUSCULAR VOLUME 88.2 fl (80.0-96.0); PLATELET COUNT, AUTOMATED 180 10^3/uL (150-450); RED BLOOD COUNT 5.49 10^6/uL (4.30-6.10); WHITE BLOOD COUNT 6.2 10^3/uL (4.0-10.0)
[2021-12-12 12:00] LABS: BLOOD UREA NITROGEN 20 MG/DL (7-18); CALCIUM LEVEL 9.5 MG/DL (8.8-10.2); CARBON DIOXIDE LEVEL 31 MEQ/L (21-32); CHLORIDE LEVEL 107 MEQ/L (98-107); CREATININE FOR GFR 1.04 MG/DL (0.70-1.30); GLOMERULAR FILTRATION RATE > 60.0 (>42); GLUCOSE, FASTING 112 MG/DL (70-100); MAGNESIUM LEVEL 2.3 MG/DL (1.8-2.4); POTASSIUM SERUM 4.5 MEQ/L (3.5-5.1); SODIUM LEVEL 141 MEQ/L (136-145)
== END ==
LOC: M LABDRAWC 11:13
PROVIDERS: ATTEND Physician Assistant
DX: I50.32 Chronic diastolic (congestive) heart failure (principal); I48.0 Paroxysmal atrial fibrillation; I25.10 Atherosclerotic heart disease of native coronary artery without angina pectoris

== ENCOUNTER → 2022-04-17 | Outpatient (REF) | payer MEDICARE ==
[2022-04-17 11:41] LABS: INR 2.93; PROTHROMBIN TIME 30.9 SECONDS (12.7-14.5)
== END ==
LOC: M LABDRAWC 11:12
PROVIDERS: ATTEND Physician Assistant
DX: I48.0 Paroxysmal atrial fibrillation (principal)

== ENCOUNTER → 2022-05-23 | Outpatient (REF) | payer MEDICARE ==
[2022-05-23 12:01] LABS: INR 3.24; PROTHROMBIN TIME 33.4 SECONDS (12.7-14.5)
== END ==
LOC: M LABDRAWC 11:16
PROVIDERS: ATTEND Physician Assistant
DX: I48.0 Paroxysmal atrial fibrillation (principal)

== ENCOUNTER → 2022-06-12 | Outpatient (REF) | payer MEDICARE ==
[2022-06-12 12:32] LABS: INR 2.92; PROTHROMBIN TIME 30.8 SECONDS (12.7-14.5)
== END ==
LOC: M LABDRAWC 11:23
PROVIDERS: ATTEND Physician Assistant
DX: I48.0 Paroxysmal atrial fibrillation (principal); Z79.01 Long term (current) use of anticoagulants

== ENCOUNTER → 2022-06-13 | Outpatient (REF) | payer MEDICARE ==
[2022-06-13 11:30] LABS: HEMATOCRIT 47.1 % (42.0-52.0); HEMOGLOBIN 14.7 g/dl (13.5-17.5); MEAN CORPUSCULAR HEMOGLOBIN 28.4 pg (27.0-33.0); MEAN CORPUSCULAR HGB CONC 31.2 g/dl (32.0-36.5); MEAN CORPUSCULAR VOLUME 91.1 fl (80.0-96.0); PLATELET COUNT, AUTOMATED 172 10^3/uL (150-450); RED BLOOD COUNT 5.17 10^6/uL (4.30-6.10); WHITE BLOOD COUNT 6.4 10^3/uL (4.0-10.0)
[2022-06-13 12:14] LABS: ALBUMIN 3.8 GM/DL (3.2-5.2); ALT/SGPT 24 U/L (12-78); BILIRUBIN,TOTAL 0.7 MG/DL (0.2-1.0); BLOOD UREA NITROGEN 22 MG/DL (7-18); CALCIUM LEVEL 8.7 MG/DL (8.8-10.2); CARBON DIOXIDE LEVEL 29 MEQ/L (21-32); CHLORIDE LEVEL 107 MEQ/L (98-107); CHOLESTEROL LEVEL 161 MG/DL (<200); CHOLESTEROL RISK RATIO 4.128 (<5); CREATININE FOR GFR 0.81 MG/DL (0.70-1.30); GLOMERULAR FILTRATION RATE > 60.0 (>42); GLUCOSE, FASTING 88 MG/DL (70-100); HDL CHOLESTEROL 39 MG/DL (>40); LDL CHOLESTEROL 93 MG/DL (<100); NON-HDL-C 122 MG/DL; POTASSIUM SERUM 4.7 MEQ/L (3.5-5.1); SODIUM LEVEL 139 MEQ/L (136-145); TOTAL PROTEIN 6.5 GM/DL (6.4-8.2); TRIGLYCERIDES LEVEL 147 MG/DL (<150)
== END ==
LOC: M LABDRAWC 10:35 → M LAB REF 10:35
PROVIDERS: ATTEND Physician Assistant
DX: I48.0 Paroxysmal atrial fibrillation (principal); I50.32 Chronic diastolic (congestive) heart failure; E78.2 Mixed hyperlipidemia

== ENCOUNTER → 2022-06-19 | Outpatient (REF) | payer MEDICARE ==
[2022-06-19 11:44] LABS: INR 2.08; PROTHROMBIN TIME 23.8 SECONDS (12.7-14.5)
== END ==
LOC: M LABDRAWC 10:54
PROVIDERS: ATTEND Physician Assistant
DX: I48.0 Paroxysmal atrial fibrillation (principal); Z79.01 Long term (current) use of anticoagulants

== ENCOUNTER → 2022-09-14 | Outpatient (REF) | payer MEDICARE | LOC: M SFHCCLAY 08:47 | PROVIDERS: ATTEND Nurse Practitioner Family | DX: Z12.5 Encounter for screening for malignant neoplasm of prostate (principal) ==

== ENCOUNTER → 2022-12-08 | Outpatient (CLI) | payer MEDICARE ==
[~2022-12-08] MED LIST changes: +B-12100010 PO; +CHEL50TA3 PO; +ELIQ5TAB PO; +FLAX10005 PO; +LISI2.5T9 PO; +OMEGA RED KRILL PO; +PYRI100L PO; +RA T500C2 PO; +VITA100093 PO; +VITA100T91 PO; +VITA50TA47 PO; +[UNRECOGNIZED DRUG - OTHER]; +[UNRECOGNIZED DRUG - OTHER] PO; +[UNRECOGNIZED DRUG - SUPPLY] PO
== END ==
LOC: M LABSMTC 10:32
PROVIDERS: ATTEND Anesthesiology
DX: Z01.812 Encounter for preprocedural laboratory examination (principal); Z20.822 Contact with and (suspected) exposure to COVID-19

== ENCOUNTER 2022-12-13 08:42 | Day surgery (SDC) | payer MEDICARE ==
[~2022-12-13] VITALS: Ht 175.3 cm; Wt 110.9 kg
[~2022-12-13 08:42] MED LIST changes: +NS 1,000 ML IV ONE
[2022-12-13] MEDS ORDERED: propofoL 200 MG/20 ML VIAL As Ordered ONE (09:17)
[2022-12-13] MEDS ORDERED: LIDOCAINE 2% 100MG/5ML SDV (FOR ANES.) As Ordered ONE (09:17)
[2022-12-13 10:25] VITALS: BP 97/55
== END 2022-12-13 10:33 | disposition home or self-care (01) ==
LOC: M OPP 08:42
PROVIDERS: ATTEND Surgery
DX: Z86.010 Personal history of colon polyps (principal); D12.0 Benign neoplasm of cecum; D12.3 Benign neoplasm of transverse colon; D12.5 Benign neoplasm of sigmoid colon; G47.33 Obstructive sleep apnea (adult) (pediatric); I49.49 Other premature depolarization; I10 Essential (primary) hypertension; E78.00 Pure hypercholesterolemia, unspecified; I25.790 Atherosclerosis of other coronary artery bypass graft(s) with unstable angina pectoris; Z86.711 Personal history of pulmonary embolism; Z99.89 Dependence on other enabling machines and devices; Z79.02 Long term (current) use of antithrombotics/antiplatelets; Z79.82 Long term (current) use of aspirin; Z79.899 Other long term (current) drug therapy; Z88.0 Allergy status to penicillin

== ENCOUNTER → 2022-12-18 | Outpatient (REF) | payer MEDICARE ==
[~2022-12-18] MED LIST changes: -NS 1,000 ML IV ONE
[2022-12-18 11:44] LABS: HEMATOCRIT 48.5 % (42.0-52.0); HEMOGLOBIN 15.3 g/dl (13.5-17.5); MEAN CORPUSCULAR HEMOGLOBIN 28.5 pg (27.0-33.0); MEAN CORPUSCULAR HGB CONC 31.5 g/dl (32.0-36.5); MEAN CORPUSCULAR VOLUME 90.5 fl (80.0-96.0); PLATELET COUNT, AUTOMATED 170 10^3/uL (150-450); RED BLOOD COUNT 5.36 10^6/uL (4.30-6.10); WHITE BLOOD COUNT 7.7 10^3/uL (4.0-10.0)
[2022-12-18 12:12] LABS: BLOOD UREA NITROGEN 19 MG/DL (9-23); CALCIUM LEVEL 8.2 MG/DL (8.3-10.6); CARBON DIOXIDE LEVEL 30 MMOL/L (20-31); CHLORIDE LEVEL 103 MMOL/L (98-107); CREATININE FOR GFR 0.97 MG/DL (0.70-1.30); GLOMERULAR FILTRATION RATE > 60.0 (>42); GLUCOSE, FASTING 98 MG/DL (74-106); MAGNESIUM LEVEL 1.6 MG/DL (1.8-2.4); POTASSIUM SERUM 4.6 MMOL/L (3.5-5.1); SODIUM LEVEL 138 MMOL/L (136-145)
== END ==
LOC: M LABDRAWC 11:02
PROVIDERS: ATTEND Physician Assistant
DX: I48.0 Paroxysmal atrial fibrillation (principal); I50.32 Chronic diastolic (congestive) heart failure

== ENCOUNTER → 2023-03-23 | Outpatient (REF) | payer MEDICARE ==
[~2023-03-23] MED LIST changes: +POTA-298 PO; -POTA1TAB14 PO
[2023-03-23 11:30] LABS: BASO % 0.6 % (0.0-1.0); EOS # 0.1 10^3/uL (0.0-0.5); EOS % 1.2 % (0.0-3.0); HEMATOCRIT 46.8 % (42.0-52.0); HEMOGLOBIN 14.9 g/dl (13.5-17.5); LYMPH % 30.2 % (24.0-44.0); MEAN CORPUSCULAR HEMOGLOBIN 28.7 pg (27.0-33.0); MEAN CORPUSCULAR HGB CONC 31.8 g/dl (32.0-36.5); MONO # 0.8 10^3/uL (0.0-0.8); MONO % 11.9 % (2.0-8.0); NEUTROPHILS # 3.7 10^3/uL (1.5-8.5); NEUTROPHILS % 55.8 % (36.0-66.0); PLATELET COUNT, AUTOMATED 151 10^3/uL (150-450); WHITE BLOOD COUNT 6.7 10^3/uL (4.0-10.0)
[2023-03-23 12:05] LABS: ALBUMIN 3.9 G/DL (3.2-5.2); ALKALINE PHOSPHATASE 90 U/L (46-116); ALT/SGPT 24 U/L (7.0-40); AST/SGOT 18 U/L (<34); BILIRUBIN,TOTAL 0.9 MG/DL (0.3-1.2); BLOOD UREA NITROGEN 24 MG/DL (9-23); CARBON DIOXIDE LEVEL 30 MMOL/L (20-31); CHLORIDE LEVEL 105 MMOL/L (98-107); CREATININE FOR GFR 0.94 MG/DL (0.70-1.30); FREE THYROXINE INDEX 3.7 % (1.4-3.8); GLOMERULAR FILTRATION RATE > 60.0 (>42); GLUCOSE, FASTING 94 MG/DL (74-106); POTASSIUM SERUM 4.3 MMOL/L (3.5-5.1); SODIUM LEVEL 138 MMOL/L (136-145); T UPTAKE 34.4 % (22.5-37.0); THYROID STIMULATING HORMONE 0.845 uIU/ML (0.55-4.78); THYROXINE (T4) 10.9 UG/DL (4.5-10.9); TOTAL PROTEIN 6.2 G/DL (5.7-8.2)
== END ==
LOC: M SFHCCLAY 08:53
PROVIDERS: ATTEND Nurse Practitioner Family
DX: I49.9 Cardiac arrhythmia, unspecified (principal)

== ENCOUNTER → 2023-09-05 | Outpatient (REF) | payer MEDICARE ==
[2023-09-05 18:14] LABS: ALBUMIN 3.5 G/DL (3.2-5.2); ALKALINE PHOSPHATASE 72 U/L (46-116); ALT/SGPT 23 U/L (7.0-40); AST/SGOT 20 U/L (<34); BILIRUBIN,TOTAL 0.5 MG/DL (0.3-1.2); BLOOD UREA NITROGEN 21 MG/DL (9-23); CARBON DIOXIDE LEVEL 31 MMOL/L (20-31); CHLORIDE LEVEL 104 MMOL/L (98-107); CHOLESTEROL LEVEL 262 MG/DL (<200); CHOLESTEROL RISK RATIO 6.75 (<5); CREATININE FOR GFR 0.86 MG/DL (0.70-1.30); FREE T4 1.12 NG/DL (0.89-1.76); GLOMERULAR FILTRATION RATE > 60.0 (>42); GLUCOSE, FASTING 83 MG/DL (74-106); HDL CHOLESTEROL 38.8 MG/DL (>40); LDL CHOLESTEROL 192.6 MG/DL (<100); NON-HDL-C 223.2 MG/DL; POTASSIUM SERUM 4.9 MMOL/L (3.5-5.1); SODIUM LEVEL 138 MMOL/L (136-145); THYROID STIMULATING HORMONE 1.293 uIU/ML (0.55-4.78); TOTAL PROTEIN 6.2 G/DL (5.7-8.2); TRIGLYCERIDES LEVEL 153 MG/DL (<150)
== END ==
LOC: M SFHCCLAY 10:02
PROVIDERS: ATTEND Nurse Practitioner Family
DX: I25.10 Atherosclerotic heart disease of native coronary artery without angina pectoris (principal); I48.0 Paroxysmal atrial fibrillation; G47.33 Obstructive sleep apnea (adult) (pediatric); I10 Essential (primary) hypertension; E78.2 Mixed hyperlipidemia

== ENCOUNTER → 2023-10-31 | Outpatient (REF) | payer MEDICARE ==
[2023-10-31 12:39] LABS: ALBUMIN 3.9 G/DL (3.2-5.2); ALKALINE PHOSPHATASE 80 U/L (46-116); ALT/SGPT 28 U/L (7.0-40); AST/SGOT 27 U/L (<34); BILIRUBIN,TOTAL 0.7 MG/DL (0.3-1.2); BLOOD UREA NITROGEN 24 MG/DL (9-23); CALCIUM LEVEL 9.3 MG/DL (8.3-10.6); CARBON DIOXIDE LEVEL 32 MMOL/L (20-31); CHLORIDE LEVEL 104 MMOL/L (98-107); CHOLESTEROL LEVEL 161 MG/DL (<200); CHOLESTEROL RISK RATIO 4.29 (<5); CREATININE FOR GFR 0.98 MG/DL (0.70-1.30); GLOMERULAR FILTRATION RATE > 60.0 (>42); GLUCOSE, FASTING 87 MG/DL (74-106); HDL CHOLESTEROL 37.5 MG/DL (>40); LDL CHOLESTEROL 95.9 MG/DL (<100); NON-HDL-C 123.5 MG/DL; POTASSIUM SERUM 4.8 MMOL/L (3.5-5.1); SODIUM LEVEL 140 MMOL/L (136-145); TOTAL PROTEIN 6.6 G/DL (5.7-8.2); TRIGLYCERIDES LEVEL 138 MG/DL (<150)
== END ==
LOC: M SFHCCLAY 09:09
PROVIDERS: ATTEND Nurse Practitioner Family
DX: E78.2 Mixed hyperlipidemia (principal)

== ENCOUNTER → 2024-03-28 | Outpatient (REF) | payer MEDICARE | LOC: M SFHCCLAY 09:24 | PROVIDERS: ATTEND Nurse Practitioner Family | DX: I48.0 Paroxysmal atrial fibrillation (principal); E78.2 Mixed hyperlipidemia; I10 Essential (primary) hypertension; I25.10 Atherosclerotic heart disease of native coronary artery without angina pectoris; G47.33 Obstructive sleep apnea (adult) (pediatric) ==

== ENCOUNTER → 2024-03-28 | Outpatient (CLI) | payer MEDICARE | LOC: M PLAIMG 10:30 | PROVIDERS: ATTEND Physician Assistant | DX: I35.2 Nonrheumatic aortic (valve) stenosis with insufficiency (principal); Z95.3 Presence of xenogenic heart valve ==

== ENCOUNTER → 2024-04-24 | Outpatient (REF) | payer MEDICARE ==
[2024-04-24 12:05] LABS: ALBUMIN 3.7 G/DL (3.2-5.2); ALKALINE PHOSPHATASE 84 U/L (46-116); ALT/SGPT 22 U/L (7.0-40); AST/SGOT 18 U/L (<34); BILIRUBIN,TOTAL 0.7 MG/DL (0.3-1.2); BLOOD UREA NITROGEN 25 MG/DL (9-23); CALCIUM LEVEL 8.8 MG/DL (8.3-10.6); CARBON DIOXIDE LEVEL 30 MMOL/L (20-31); CHLORIDE LEVEL 104 MMOL/L (98-107); CHOLESTEROL LEVEL 207 MG/DL (<200); CHOLESTEROL RISK RATIO 5.06 (<5); CREATININE FOR GFR 0.88 MG/DL (0.70-1.30); GLOMERULAR FILTRATION RATE > 60.0 (>42); GLUCOSE, FASTING 90 MG/DL (74-106); HDL CHOLESTEROL 40.9 MG/DL (>40); LDL CHOLESTEROL 133.3 MG/DL (<100); NON-HDL-C 166.1 MG/DL; POTASSIUM SERUM 4.3 MMOL/L (3.5-5.1); SODIUM LEVEL 139 MMOL/L (136-145); TOTAL PROTEIN 6.4 G/DL (5.7-8.2); TRIGLYCERIDES LEVEL 164 MG/DL (<150)
[2024-04-24 12:36] LABS: HEMOGLOBIN A1c 5.8 % (4.0-6.0)
== END ==
LOC: M SFHCCLAY 08:06
PROVIDERS: ATTEND Nurse Practitioner Family
DX: E78.2 Mixed hyperlipidemia (principal); I48.0 Paroxysmal atrial fibrillation; I10 Essential (primary) hypertension; I25.10 Atherosclerotic heart disease of native coronary artery without angina pectoris; G47.33 Obstructive sleep apnea (adult) (pediatric); Z79.899 Other long term (current) drug therapy

== ENCOUNTER → 2024-09-15 | Outpatient (REF) | payer MEDICARE | LOC: M SFHCCLAY 08:22 | PROVIDERS: ATTEND Nurse Practitioner Family | DX: E78.2 Mixed hyperlipidemia (principal); I48.0 Paroxysmal atrial fibrillation; I10 Essential (primary) hypertension; I25.10 Atherosclerotic heart disease of native coronary artery without angina pectoris; G47.33 Obstructive sleep apnea (adult) (pediatric) ==

== ENCOUNTER → 2025-01-08 | Outpatient (REF) | payer MEDICARE ==
[2025-01-08 13:10] LABS: HEMATOCRIT 47.5 % (42.0-52.0); HEMOGLOBIN 15.4 g/dl (13.5-17.5); MEAN CORPUSCULAR HEMOGLOBIN 28.3 pg (27.0-33.0); MEAN CORPUSCULAR HGB CONC 32.4 g/dl (32.0-36.5); MEAN CORPUSCULAR VOLUME 87.2 fl (80.0-96.0); PLATELET COUNT, AUTOMATED 212 10^3/uL (150-450); RED BLOOD COUNT 5.45 10^6/uL (4.30-6.10); WHITE BLOOD COUNT 7.5 10^3/uL (4.0-10.0)
[2025-01-08 13:42] LABS: BILIRUBIN,TOTAL 0.6 MG/DL (0.3-1.2); CALCIUM LEVEL 8.8 MG/DL (8.3-10.6); CHOLESTEROL RISK RATIO 4.23 (<5); CREATININE FOR GFR 0.91 MG/DL (0.70-1.30); GLOMERULAR FILTRATION RATE 87.9 (>42); MAGNESIUM LEVEL 2.2 MG/DL (1.8-2.4); POTASSIUM SERUM 4.8 MMOL/L (3.5-5.1); TOTAL PROTEIN 6.6 G/DL (5.7-8.2)
== END ==
LOC: M LABDRAWC 12:03
PROVIDERS: ATTEND Physician Assistant
DX: I25.10 Atherosclerotic heart disease of native coronary artery without angina pectoris (principal); I48.0 Paroxysmal atrial fibrillation; E78.2 Mixed hyperlipidemia

== ENCOUNTER → 2025-09-17 | Outpatient (REF) | payer MEDICARE ==
[~2025-09-17] MED LIST changes: -AMIO200T40 PO; +AMIO200T55 PO; -FLAX10005 PO; +FLAX1CAP6 PO; -RA T500C2 PO; +TURM500C10 PO
[2025-09-17 12:23] LABS: ALT/SGPT 18.0 U/L (7.0-40); AST/SGOT 21.0 U/L (<34); CALCIUM LEVEL 9.3 MG/DL (8.3-10.6); CARBON DIOXIDE LEVEL 33.0 MMOL/L (20-31); CHLORIDE LEVEL 101.0 MMOL/L (98-107); CHOLESTEROL LEVEL 285.0 MG/DL (<200); CHOLESTEROL RISK RATIO 6.44 (<5); CREATININE FOR GFR 0.94 MG/DL (0.70-1.30); GLOMERULAR FILTRATION RATE 84.5 (>42); LDL CHOLESTEROL 211.8 MG/DL (<100); NON-HDL-C 240.8 MG/DL; POTASSIUM SERUM 4.9 MMOL/L (3.5-5.1); SODIUM LEVEL 140.0 MMOL/L (136-145); TRIGLYCERIDES LEVEL 145.0 MG/DL (<150)
[2025-09-17 13:11] LABS: ESTIMATED AVERAGE GLUCOSE 111.0 MG/DL (60-110)
== END ==
LOC: M SFHCCLAY 08:33
PROVIDERS: ATTEND Nurse Practitioner Family
DX: Z00.00 Encounter for general adult medical examination without abnormal findings (principal); E78.2 Mixed hyperlipidemia; I48.0 Paroxysmal atrial fibrillation; I10 Essential (primary) hypertension; I25.10 Atherosclerotic heart disease of native coronary artery without angina pectoris; G47.33 Obstructive sleep apnea (adult) (pediatric); R73.03 Prediabetes